=== PATIENT | female | born 1945 | race Caucasian/White ===

== ENCOUNTER 2020-12-16 13:21 | Observation (INO) ==
[~2020-12-16 13:21] MED LIST: SCOPOLAMINE 1 PATCH PATCH TOPICAL PRN
[2020-12-16] MEDS ORDERED: ONDANSETRON 4 MG/2 ML VIAL IV ONE (13:43)
[2020-12-16] MEDS ORDERED: 0.9 % SODIUM CHLORIDE 1,000 ML IV ONE (13:43)
[2020-12-16 14:33] LABS: Basophils # (Auto) 0.04 K/mcL (0.00-0.20); Basophils % (Auto) 0.5 % (0.0-2.0); Eosinophils # (Auto) 0.01 K/mcL (0.00-0.70); Eosinophils % (Auto) 0.1 % (0.0-7.0); Hematocrit 30.1 % (36.0-48.0); Hemoglobin 9.4 g/dL (12.0-15.0); Lymphocytes # (Auto) 2.29 K/mcL (1.50-4.80); Lymphocytes % (Auto) 28.9 % (15.0-49.0); Mean Cell Volume 98.7 fL (80.0-100.0); Mean Corpuscular HGB Conc 31.2 g/dL (31.0-36.0); Mean Platelet Volume 10.6 fL (7.4-10.4); Monocytes # (Auto) 1.92 K/mcL (0.10-0.90); Monocytes % (Auto) 24.2 % (1.0-12.0); Neutrophils % (Auto) 46.3 % (38.0-78.0); Platelet Count 156 K/mcL (140-440); RBC 3.05 M/mcL (4.00-5.20); Red Cell Distribution Width 28.7 % (11.5-14.5); WBC 7.9 K/mcL (4.5-11.0)
[2020-12-16 14:57] LABS: ALT/SGPT 6 U/L (<40); AST/SGOT 14 U/L (<32); Albumin 4.1 gm/dL (3.2-5.2); Albumin/Globulin Ratio 1.3 (1.0-2.3); Alkaline Phosphatase 66 U/L (39-117); Bilirubin,Total 0.2 mg/dL (0.1-1.0); Blood Urea Nitrogen 27 mg/dL (8-23); Carbon Dioxide 22 mmol/L (22-30); Chloride 102 mmol/L (96-108); Globulin 3.2 gm/dL (2.2-3.7); Glomerular Filtration Rate 55; Glucose 115 mg/dL (70-105)
[2020-12-16] MEDS ORDERED: ONDANSETRON 4 MG/2 ML VIAL IV PRN (15:17)
--- NOTE | 2020-12-16 15:27 | Emergency Department Note ---
Abdominal Pain HPI General Chief Complaint: Abdominal Pain Stated Complaint: abdominal pain Time Seen by Provider: 12/16/20 13:23 Mode of arrival: ambulatory Limitations: no limitations History of Present Illness HPI Narrative: Narrative: Patient is a 75-year-old female that comes into the emergency department today with concern of increasing pain to the right upper quadrant that started 2 weeks ago. Patient reports that yesterday the pain became very severe that she felt that she needed to come to the emergency department. She has been seen by her primary care provider, and PCP had ordered an outpatient ultrasound to be done on Friday, but patient felt that her pain was worsening so she decided to come in today. Patient reports feeling nauseous but has not had any vomiting. She has not had any fevers or chills. She reports that she started taking tramadol and has been occasionally constipated. Her last bowel movement was 2 days ago. She denies any melena or hematochezia. Patient denies any cough, chest pain, shortness of breath, or difficulty breathing. Related Data Home Medications Medication Instructions Recorded Confirmed aspirin [Ecotrin Low Strength] 81 mg PO QDAY 01/04/16 11/28/20 cephalexin 500 mg PO QHS 01/04/16 12/06/20 diphenhydramine HCl [Z-Sleep] 25 mg PO QHS 01/04/16 12/06/20 hydroxyurea 500 mg PO QHS 01/04/16 12/06/20 albuterol sulfate [Ventolin HFA] 2 puff INHALATION Q6H PRN 05/17/20 11/28/20 folic acid 1 mg PO QHS 05/17/20 12/06/20 paroxetine HCl 20 mg PO QHS 09/20/20 12/06/20 tramadol 100 mg PO TID PRN 09/20/20 12/06/20 ibuprofen 200 mg PO Q6H PRN 09/27/20 11/28/20 ruxolitinib [Jakafi] 10 mg PO BID 12/05/20 12/06/20 Allergies Allergy/AdvReac Type Severity Reaction Status Date / Time adhesive tape Allergy Intermediate Blister Verified 12/16/20 13:26 [place] Allergy Mild Mouth Verified 12/16/20 13:26 Blisters walnut Allergy Mild Mouth Verified 12/16/20 13:26 Blisters hydrocodone AdvReac Intermediate Nausea Verified 12/16/20 13:26 oxycodone [OXYCODONE] AdvReac Intermediate Hallucinati Verified 12/16/20 13:26 ons propoxyphene AdvReac Intermediate Hallucinati Verified 12/16/20 13:26 [From Fernando-N] ng codeine [CODEINE] AdvReac Mild Vomiting Verified 12/16/20 13:26 Review of Systems ROS ROS Narrative: Narrative: All systems ED: reviewed and negative except as stated. [facility] Narrative Patient History Narrative: Narrative: Medical/Surgical/Family History All Active Problems (Updated 12/16/20 @ 15:28 by MICHAEL Johnson) Cholelithiasis (Acute) Constipation (Acute) History of tobacco use (Chronic) Open leg wound (Chronic) Easy bruising (Chronic) Abnormal gait (Chronic) Urinary incontinence (Chronic) Dyspnea on exertion (Chronic) Edema (Chronic) Ankle fracture (Chronic) History of surgery (Chronic) Depression (Chronic) Degenerative joint disease (Chronic) Polycythemia vera (Chronic) Low back pain (Chronic) Chronic pain (Chronic) Radiculopathy, lumbar region (Chronic) Chronic foot ulcer (Chronic) Influenza (Chronic) Right middle lobe pneumonia (Chronic) Medical History (Updated 12/16/20 @ 15:28 by MICHAEL Johnson) Abnormal gait uses cane Ankle fracture Chronic foot ulcer Chronic pain Degenerative joint disease Depression Dyspnea on exertion Easy bruising Edema History of tobacco use Influenza Low back pain Open leg wound vascular stalled wounds both lower legs,II classifcation C4a Polycythemia vera Radiculopathy, lumbar region Right middle lobe pneumonia Urinary incontinence Surgical History (Updated 11/15/20 @ 13:19 by Heather Lara) History of appendectomy History of oophorectomy History of right oophorectomy History of skin graft History of splenectomy History of surgery TF LINDY #2 Bilat L5-S1 w/sed 12/01/201811/14 TF LINDY #1 [place] L5-S1 w/sed 11/10/2018 History of surgery multiple debridement of wound on foot Family History (Updated 11/15/20 @ 13:20 by Heather Lara) Father Skin cancer Mother Arthritis Social History Smoking Status: Former smoker Alcohol Intake Frequency: does not drink Substance Use: does not use Exam Narrative Narrative: Narrative: General Limitations: no limitations General appearance: Present alert and in no apparent distress Head Head: Present atraumatic, normocephalic and normal inspection Eye Eye: Present normal appearance and PERRL; Absent scleral icterus ENT ENT: Present normal exam, normal oropharynx and mucous membranes moist Neck Neck: Present normal inspection, full ROM and trachea midline; Absent lymphadenopathy and thyromegaly Chest Chest: Present symmetric chest wall rise Respiratory Respiratory: Present normal lung sounds bilaterally; Absent respiratory di stress, rales/crackles, wheezes, stridor, accessory muscle use and prolonged expiratory phase Cardiovascular Cardiovascular: Present regular rate and normal rhythm; Absent systolic murmur and diastolic murmur Ad[place]om[place] Abdominal: Present soft, tenderness (Right upper quadrant) and Natarajan's sign; Absent distention, ascites, mass and hernia Extremities Extremities: Present normal inspection, full ROM and normal capillary refill; Absent pedal edema, pretibial edema and calf tenderness Back Back: Present normal inspection and full ROM; Absent tenderness, CVA tenderness (R), CVA tenderness (L) and spinous process tenderness Neurological Neurological: Present alert and oriented X3 Psychiatric Psychiatric: Present normal affect and normal mood Skin Skin: Present warm (WNL) and dry Course Vital Signs Vital signs: Vital Signs Pulse Rate 75 12/16/20 15:30 Blood Pressure 149/71 12/16/20 15:30 Pulse Oximetry (%) 97 12/16/20 15:30 Temperature 98.2 F 12/16/20 16:00 Pulse Rate 86 12/16/20 16:00 Respiratory Rate 16 12/16/20 16:00 Blood Pressure 144/68 12/16/20 16:00 Pulse Oximetry (%) 97 12/16/20 16:00 [facility] Narrative Medical decision making narrative: Narrative: Patient has right upper quadrant tenderness with positive Natarajan sign. Proceeded with an ultrasound for further evaluation. The ultrasound does show some cholelithiasis with asymmetrical thickening of the wall of the gallbladder. No stone obstruction was seen. Common bile duct 4.5 cm as read to me by the biology specimen technician. The patient has a normal CBC besides some slight anemia which appears to be stable and at the patient's baseline. CMP is unremarkable. I was able to consult with Dr. Kaye who is on-call today for general surgery. Dr. Kaye would like the patient to be admitted for observation, and will plan on a laparoscopic cholecystectomy likely tomorrow. Dr. Kaye will plan on seeing the patient. Patient will be admitted to [facility]. Lab Data Result diagrams: 12/16/20 13:50 12/16/20 13:50 Labs: Lab Results 12/16/20 12/16/20 Range/Units 13:50 13:50 WBC 7.9 (4.5-11.0) K/mcL RBC 3.05 L (4.00-5.20) M/mcL Hgb 9.4 L (12.0-15.0) g/dL Hct 30.1 L (36.0-48.0) % MCV 98.7 (80.0-100.0) fL MCH 30.8 (26.0-34.0) pg MCHC 31.2 (31.0-36.0) g/dL RDW 28.7 H (11.5-14.5) % Plt Count 156 (140-440) K/mcL MPV 10.6 H (7.4-10.4) fL Neut % (Auto) 46.3 (38.0-78.0) % Lymph % (Auto) 28.9 (15.0-49.0) % [place] % (Auto) 24.2 H (1.0-12.0) % Eos % (Auto) 0.1 (0.0-7.0) % Baso % (Auto) 0.5 (0.0-2.0) % Lymph # (Auto) 2.29 (1.50-4.80) K/mcL [place] # (Auto) 1.92 H (0.10-0.90) K/mcL Eos # (Auto) 0.01 (0.00-0.70) K/mcL Baso # (Auto) 0.04 (0.00-0.20) K/mcL Absolute Neutrophils 3.66 (1.80-8.00) K/mcL Sodium 135 (133-145) mmol/L Potassium 4.1 (3.3-5.1) mmol/L Chloride 102 (96-108) mmol/L Carbon Dioxide 22 (22-30) mmol/L Anion Gap 11.0 (8.0-16.0) BUN 27 H (8-23) mg/dL Creatinine 1.0 (0.6-1.1) mg/dL GFR Calculation 55 Glucose 115 H (70-105) mg/dL Calcium 9.0 (8.6-10.4) mg/dL Total Bilirubin 0.2 (0.1-1.0) mg/dL AST 14 (<32) U/L ALT 6 (<40) U/L Alkaline Phosphatase 66 (39-117) U/L Total Protein 7.3 (5.9-8.4) gm/dL Albumin 4.1 (3.2-5.2) gm/dL Globulin 3.2 (2.2-3.7) gm/dL Albumin/Globulin Ratio 1.3 (1.0-2.3) Lipase 19 (7-60) U/L Discharge Plan Patient/Caregiver Discharge Instructions Pt seen by [facility] ADMINISTRATOR/PA only: Yes Clinical Impression: Cholelithiasis Qualifiers: Cholelithiasis location: gallbladder Cholecystitis presence: with cholecystitis Cholecystitis acuity: acute Biliary obstruction: without biliary obstruction Qualified Code(s): K80.00 - Calculus of gallbladder with acute cholecystitis without obstruction Constipation Qualifiers: Constipation type: drug induced constipation Qualified Code(s): K59.03 - Drug induced constipation Patient Disposition: Xfer As Outpt/Obs ([facility]) Condition: Fair Discharge Date/Time: 12/16/20 15:45
[2020-12-16] MEDS ORDERED: PIPERACILLIN SODIUM/TAZOBACTAM 3.375 GM in DEXTROSE 5% IN WATER 50 ML IV SCH (15:30)
[2020-12-16] MEDS: 0.9 % SODIUM CHLORIDE 1,000 ML IV SCH (17:07)
[2020-12-16] MEDS: PIPERACILLIN SODIUM/TAZOBACTAM 2.25 GM in DEXTROSE 5% IN WATER 50 ML IV SCH ×2 (17:14→20:32)
[2020-12-16] MEDS: HYDROmorphone 0.5 MG/0.5 ML SYRINGE IV PRN ×2 (17:14→20:29)
[2020-12-16] MEDS ORDERED: ALBUTEROL SULFATE 200 PUFF INHALER INH PRN (17:53)
[2020-12-16 18:21] LABS: Prothrombin Time 13.8 sec (11.9-14.5)
--- NOTE | 2020-12-16 18:27 | XRay Report ---
CLINICAL INFORMATION: Abdominal pain with history of constipation COMPARISON: None. FINDINGS: Moderate amount of stool is present within the right and rectosigmoid segment of the colon. Colon is slightly dilated. Small bowel and stomach are normal caliber. No free air, soft tissue mass or pathologic calcification. IMPRESSION: No acute disease. Moderate stool in the right and rectosigmoid colonic segments. Interpreted and Authenticated by: Mikel Gilmore 12/16/20
--- NOTE | 2020-12-16 18:32 | Ultrasound Report ---
CLINICAL INFORMATION: Right upper quadrant pain. Positive Natarajan sign. COMPARISON: None. FINDINGS: Multiple stones within the gallbladder. Gallbladder wall slightly thickened - 4 mm with focal tenderness over the gallbladder. Common bile duct is normal - 4 mm. The liver and pancreas are normal in size and echotexture. No free fluid IMPRESSION: Cholecystitis Interpreted and Authenticated by: Mikel Gilmore 12/16/20
--- NOTE | 2020-12-16 18:36 | General Surg History&Physical ---
HPI History of Present Illness Patient information: Note initiated : 12/16/20 at 6:20 pm Service Date, if different from initiated Date: [] Patient: Agatha Jay a 75 y/o F admitted on 12/16/20 for abdominal pain. Chief Complaint: [] History of present illness: Ms. Jay is a 75 year old F with acute cholecystitis with cholelithiasis. Patient has a 2-month history of right upper quadrant, epigastric, but back pain. She was seen by her primary care provider and scheduled for upper abdominal ultrasound which is to be done in 2 days. Wh en seen in the emergency room she was noted to have edematous gallbladder with multiple stones. Her ductal system is normal. Patient states that she has been unable to eat because of pain, early satiety, nausea and vomiting. She has at least a 20 pound weight loss over the past 2 months. Patient is evaluated and counseled for urgent laparoscopic cholecystectomy which will be performed in the morning. Constitutional Constitutional: Present anorexia, fatigue, lethargy, malaise, weakness and weight loss (20 pound weight loss) EENT Eyes: Absent loss of vision Ears: Absent decreased hearing and tinnitus Nose, mouth and throat: Absent dizziness and dysphagia Cardiovascular Cardiovascular: Present leg ulcers, lightheadedness and palpatations; Absent chest pain, chest pain with activity and dyspnea on exertion Respiratory Respiratory: Absent cough, dyspnea and wheezing Gastrointestinal Gastrointestinal: Present abdominal pain, belching, bloating, constipation, dyspepsia, heartburn, nausea and vomiting Genitourinary Genitourinary: Absent nocturia, urinary frequency, urinary hesitancy and urinary urgency Musculoskeletal Musculoskeletal: Present arthralgias, muscle weakness and myalgias Integumentary Integumentary: Present new lesions (Bilateral ankle ulcerations) and skin ulcer Neurological Neurological: Present abnormal gait and sensory deficit; Absent dizziness and f ocal weakness Psychiatric Psychiatric: Present anxiety; Absent depression Endocrine Endocrine: Present fatigue; Absent palpitations Hematologic/Lymphatic Hematologic/Lymphatic: Absent easy bleeding, easy bruising and lymphadenopathy Allergic/Immunologic Allergic/Immunologic: Absent tongue swelling, throat swelling, uticaria and wheezing PFSH PFSH All Active Problems (Updated 12/16/20 @ 18:34 by Bel Kaye MD) Moderate dehydration (Acute) Cholelithiasis and cholecystitis without obstruction (Acute) Cholelithiasis (Acute) Constipation (Acute) History of tobacco use (Chronic) Open leg wound (Chronic) Easy bruising (Chronic) Abnormal gait (Chronic) Urinary incontinence (Chronic) Dyspnea on exertion (Chronic) Edema (Chronic) Ankle fracture (Chronic) History of surgery (Chronic) Depression (Chronic) Degenerative joint disease (Chronic) Polycythemia vera (Chronic) Low back pain (Chronic) Chronic pain (Chronic) Radiculopathy, lumbar region (Chronic) Chronic foot ulcer (Chronic) Influenza (Chronic) Right middle lobe pneumonia (Chronic) Medical History (Updated 12/16/20 @ 18:34 by Bel Kaye MD) Abnormal gait uses cane Ankle fracture Chronic foot ulcer Chronic pain Degenerative joint disease Depression Dyspnea on exertion Easy bruising Edema History of tobacco use Influenza Low back pain Open leg wound vascular stalled wounds both lower legs,II classifcation C4a Polycythemia vera Radiculopathy, lumbar region Right middle lobe pneumonia Urinary incontinence Surgical History (Updated 11/15/20 @ 13:19 by Heather Lara) History of appendectomy History of oophorectomy History of right oophorectomy History of skin graft History of splenectomy History of surgery TF LINDY #2 Bilat L5-S1 w/sed 12/01/201811/14 TF LINDY #1 [place] L5-S1 w/sed 11/10/2018 History of surgery multiple debridement of wound on foot Family History (Updated 11/15/20 @ 13:20 by Heather Lara) Father Skin cancer Mother Arthritis Social History (Updated 11/15/20 @ 13:21 by Heather Lara) marital status: education level: high school 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 smoking status: Former smoker alcohol intake frequency: does not drink substance use type: does not use MEDS/ALLERGIES Home Medications and Allergies Home Medications Medication Instructions Recorded Confirmed Type aspirin [Ecotrin Low Strength] 81 mg PO QDAY 01/04/16 12/16/20 History cephalexin 500 mg PO QHS 01/04/16 12/16/20 History diphenhydramine HCl [Z-Sleep] 25 mg PO QHS 01/04/16 12/16/20 History hydroxyurea 500 mg PO QHS 01/04/16 12/16/20 History albuterol sulfate [Ventolin HFA] 2 puff INHALATION Q6H PRN 05/17/20 12/16/20 History folic acid 1 mg PO QHS 05/17/20 12/16/20 History paroxetine HCl 40 mg PO QHS 09/20/20 12/16/20 History tramadol 50 mg PO BID 09/20/20 12/16/20 History ibuprofen 200 mg PO Q6H PRN 09/27/20 12/16/20 History ruxolitinib [Jakafi] 10 mg PO BID 12/05/20 12/16/20 History Allergies Allergy/AdvReac Type Severity Reaction Status Date / Time adhesive tape Allergy Intermediate Blister Verified 12/16/20 13:26 [place] Allergy Mild Mouth Verified 12/16/20 13:26 Blisters [place] Allergy Mild Mouth Verified 12/16/20 13:26 Blisters hydrocodone AdvReac Intermediate Nausea Verified 12/16/20 13:26 oxycodone [OXYCODONE] AdvReac Intermediate Hallucinati Verified 12/16/20 13:26 ons propoxyphene AdvReac Intermediate Hallucinati Verified 12/16/20 13:26 [From Darrylt-N] ng codeine [CODEINE] AdvReac Mild Vomiting Verified 12/16/20 13:26 Physical Examination Vital Signs Vital signs: Temp Pulse Resp BP Pulse Ox 98.2 F 86 16 144/68 97 12/16/20 16:00 12/16/20 16:00 12/16/20 16:00 12/16/20 16:00 12/16/20 16:00 General physical appearance General physical exam: moderate distress, moderate pain, cachectic and chronically ill Eyes Eye exam: PERRL and normal ocular movement ENT ENT exam: normal mucosa Head Head exam IM: Present atraumatic, normal inspection and normocephalic Neck Neck exam: no masses, no bruits, trachea midline, no lymphadenopathy and no venous distension Cardiovascular Cardiovascular exam IM: Present normal rate and rhythm, RRR, +S1 and +S2; Absent gallop, JVD and systolic murmur Respiratory Respiratory exam: normal expansion, normal respiratory effort and clear to auscultation Abdomen Abdomen: Present tender (Right upper quadrant and epigastric tenderness with guarding) and guarding Integumentary Integumentary: Present other (Chronic healing ulcerations of both ankles) Neurologic Neurologic: Present normal coordination and normal sensation Musculoskeletal Musculoskeletal: Present normal gait and normal posture Psychiatric Psychiatric: Present oriented to time, oriented to person, oriented to place, speech is normal and memory intact Results Labs Result diagrams: 12/16/20 13:50 12/16/20 13:50 Labs: Abnormal lab results 12/16/20 12/16/20 Range/Units 13:50 13:50 RBC 3.05 L (4.00-5.20) M/mcL Hgb 9.4 L (12.0-15.0) g/dL Hct 30.1 L (36.0-48.0) % RDW 28.7 H (11.5-14.5) % MPV 10.6 H (7.4-10.4) fL [place] % (Auto) 24.2 H (1.0-12.0) % [place] # (Auto) 1.92 H (0.10-0.90) K/mcL BUN 27 H (8-23) mg/dL Glucose 115 H (70-105) mg/dL Diabetes panel 12/16/20 Range/Units 13:50 Sodium 135 (133-145) mmol/L Potassium 4.1 (3.3-5.1) mmol/L Chloride 102 (96-108) mmol/L Carbon Dioxide 22 (22-30) mmol/L BUN 27 H (8-23) mg/dL Creatinine 1.0 (0.6-1.1) mg/dL Glucose 115 H (70-105) mg/dL Calcium 9.0 (8.6-10.4) mg/dL AST 14 (<32) U/L ALT 6 (<40) U/L Alkaline Phosphatase 66 (39-117) U/L Total Protein 7.3 (5.9-8.4) gm/dL Albumin 4.1 (3.2-5.2) gm/dL Calcium panel 12/16/20 Range/Units 13:50 Calcium 9.0 (8.6-10.4) mg/dL Albumin 4.1 (3.2-5.2) gm/dL Pituitary panel 12/16/20 Range/Units 13:50 Sodium 135 (133-145) mmol/L Potassium 4.1 (3.3-5.1) mmol/L Chloride 102 (96-108) mmol/L Carbon Dioxide 22 (22-30) mmol/L BUN 27 H (8-23) mg/dL Creatinine 1.0 (0.6-1.1) mg/dL Glucose 115 H (70-105) mg/dL Calcium 9.0 (8.6-10.4) mg/dL Adrenal panel 12/16/20 Range/Units 13:50 Sodium 135 (133-145) mmol/L Potassium 4.1 (3.3-5.1) mmol/L Chloride 102 (96-108) mmol/L Carbon Dioxide 22 (22-30) mmol/L BUN 27 H (8-23) mg/dL Creatinine 1.0 (0.6-1.1) mg/dL Glucose 115 H (70-105) mg/dL Calcium 9.0 (8.6-10.4) mg/dL Total Bilirubin 0.2 (0.1-1.0) mg/dL AST 14 (<32) U/L ALT 6 (<40) U/L Alkaline Phosphatase 66 (39-117) U/L Total Protein 7.3 (5.9-8.4) gm/dL Albumin 4.1 (3.2-5.2) gm/dL All other labs normal. A/P Assessment and plan (1) Cholelithiasis and cholecystitis without obstruction: Status: Acute Qualifiers: Cholelithiasis location: gallbladder Cholecystitis acuity: acute and chronic Qualified Code(s): K80.12 - Calculus of gallbladder with acute and chronic cholecystitis without obstruction (2) Moderate dehydration: Status: Acute (3) Open leg wound: Status: Chronic Comment: vascular stalled wounds both lower legs,II classifcation C4a Qualifiers: Encounter type: initial encounter Laterality: bilateral Qualified Code(s): S81.801A - Unspecified open wound, right lower leg, initial encounter; S81.802A - Unspecified open wound, left lower leg, initial encounter (4) Polycythemia vera: Status: Chronic Narrative A/P Narrative: Continue hydration tonight Zosyn 3.375 g IV every 6 hours Schedule for laparoscopic cholecystectomy in the morning N.p.o. after midnight Time Spent With Patient Time: Total time spent is greater than 50% in coordination of care (as documented) at patient's floor/unit and/or counseling patient:
[2020-12-16] MEDS: traMADol 50 MG TABLET PO SCH (20:32)
[2020-12-16] MEDS: 0.9 % SODIUM CHLORIDE 10 ML SYRINGE IV SCH (20:34)
[2020-12-16] MEDS ORDERED: diphenhydrAMINE 25 MG CAPSULE PO SCH (21:00)
[2020-12-16] MEDS ORDERED: HYDROXYUREA 500 MG CAPSULE PO SCH ×3 (21:00)
[2020-12-16] MEDS ORDERED: PARoxetine 20 MG TABLET PO SCH (21:00)
[2020-12-16] MEDS ORDERED: RUXOLITINIB 5 MG PO SCH (21:00)
[2020-12-17] MEDS ORDERED: RUXOLITINIB 5 MG PO SCH
[2020-12-17] MEDS: PIPERACILLIN SODIUM/TAZOBACTAM 2.25 GM in DEXTROSE 5% IN WATER 50 ML IV SCH ×5 (00:18→23:45)
[2020-12-17] MEDS: HYDROmorphone 0.5 MG/0.5 ML SYRINGE IV PRN ×4 (03:09→18:55)
[2020-12-17] MEDS: 0.9 % SODIUM CHLORIDE 1,000 ML IV SCH ×4 (03:53→21:16)
[2020-12-17] MEDS: 0.9 % SODIUM CHLORIDE 10 ML SYRINGE IV SCH ×3 (04:07→20:23)
[2020-12-17 06:21] LABS: Basophils # (Auto) 0.07 K/mcL (0.00-0.20); Basophils % (Auto) 0.9 % (0.0-2.0); Eosinophils # (Auto) 0.01 K/mcL (0.00-0.70); Eosinophils % (Auto) 0.1 % (0.0-7.0); Hematocrit 30.5 % (36.0-48.0); Hemoglobin 9.5 g/dL (12.0-15.0); Lymphocytes # (Auto) 2.51 K/mcL (1.50-4.80); Lymphocytes % (Auto) 30.7 % (15.0-49.0); Mean Cell Volume 100.3 fL (80.0-100.0); Mean Corpuscular HGB Conc 31.1 g/dL (31.0-36.0); Mean Platelet Volume 10.9 fL (7.4-10.4); Monocytes # (Auto) 2.33 K/mcL (0.10-0.90); Monocytes % (Auto) 28.5 % (1.0-12.0); Neutrophils % (Auto) 39.8 % (38.0-78.0); Platelet Count 150 K/mcL (140-440); RBC 3.04 M/mcL (4.00-5.20); Red Cell Distribution Width 28.9 % (11.5-14.5); WBC 8.2 K/mcL (4.5-11.0)
[2020-12-17 06:31] LABS: INR 1.1 (0.9-1.1); Prothrombin Time 14.7 sec (11.9-14.5)
[2020-12-17 06:47] LABS: ALT/SGPT 6 U/L (<40); AST/SGOT 13 U/L (<32); Albumin 3.7 gm/dL (3.2-5.2); Albumin/Globulin Ratio 1.4 (1.0-2.3); Alkaline Phosphatase 58 U/L (39-117); Bilirubin,Direct < 0.2 mg/dL (<0.3); Bilirubin,Total 0.2 mg/dL (0.1-1.0); Blood Urea Nitrogen 14 mg/dL (8-23); Calcium 8.2 mg/dL (8.6-10.4); Carbon Dioxide 23 mmol/L (22-30); Chloride 110 mmol/L (96-108); Globulin 2.7 gm/dL (2.2-3.7); Glomerular Filtration Rate 72; Glucose 85 mg/dL (70-105); Lactate Dehydrogenase 376 U/L (135-225); Phosphorous 3.1 mg/dL (2.5-4.5); Triglycerides 223 mg/dL (<150); Uric Acid 2.8 mg/dL (2.5-8.0)
[2020-12-17 07:00] LABS: Appearance,Urine CLEAR (Clear); Bacteria,Urine 0 /hpf (0); Bilirubin,Urine Negative (Negative); Color,Urine STRAW; Culture Indicated,Urine No; Glucose,Urine (UA) Negative (Negative); Ketones,Urine Negative (Negative); Leukocyte Esterase,Urine Negative /ug (Negative); Nitrate,Urine Negative (Negative); Protein,Urine 30 mg/dL (Negative); Specific Gravity,Urine 1.017 (1.000-1.035); Urine Blood Negative (Negative); Urine RBC 1 /hpf (0-3); Urine Squamous Epithelial Cell 20 /hpf (0-4); Urine WBC 2 /hpf (0-4); Urobilinogen,Urine Negative
[2020-12-17] MEDS ORDERED: LIDOCAINE HCL/PF 100 MG/5 ML SYRINGE IV ONE (08:00)
[2020-12-17] MEDS ORDERED: DEXAMETHASONE 10 MG/ML VIAL ONE (08:00)
[2020-12-17] MEDS ORDERED: ONDANSETRON 4 MG/2 ML VIAL ONE (08:00)
[2020-12-17] MEDS ORDERED: IPRATROPIUM/ALBUTEROL 3 ML AMPUL.NEB NEB PRN ×2 (08:00→08:34)
[2020-12-17] MEDS ORDERED: PROPOFOL 200 MG/20 ML VIAL IV ONE (08:00)
[2020-12-17] MEDS ORDERED: ePHEDrine 50 MG/ML AMPUL IV ONE (08:00)
[2020-12-17] MEDS ORDERED: PHENYLEPHRINE 10 MG/ML VIAL ONE (08:00)
[2020-12-17] MEDS ORDERED: fentaNYL 100 MCG/2 ML VIAL IV ONE (08:00)
[2020-12-17] MEDS ORDERED: MIDAZOLAM 2 MG/2 ML VIAL ONE (08:00)
[2020-12-17] MEDS ORDERED: GLYCOPYRROLATE 0.2 MG/ML VIAL IV ONE (08:00)
[2020-12-17] MEDS ORDERED: ROCURONIUM 10 MG/ML ML IV ONE (08:00)
[2020-12-17] MEDS ORDERED: MAGNESIUM SULFATE 2 GM/50 ML BAG IV ONE (08:00)
[2020-12-17] MEDS ORDERED: SUGAMMADEX SODIUM 200 MG/2 ML VIAL IV ONE (08:00)
[2020-12-17] MEDS ORDERED: KETAMINE 100 MG/ML ML ONE (08:00)
[2020-12-17] MEDS ORDERED: METHOCARBAMOL 1,000 MG/10 ML VIAL IV PRN (08:34)
[2020-12-17] MEDS ORDERED: LACTATED RINGERS 250 ML IV PRN (08:34)
[2020-12-17] MEDS ORDERED: LABETALOL 5 MG/ML ML IV PRN (08:34)
[2020-12-17] MEDS ORDERED: PROMETHAZINE 25 MG/ML VIAL IV PRN (08:34)
[2020-12-17] MEDS ORDERED: NALOXONE HCL 0.4 MG/ML VIAL IV PRN (08:34)
[2020-12-17] MEDS ORDERED: FLUMAZENIL 0.1 MG/ML ML IV PRN (08:34)
[2020-12-17] MEDS ORDERED: ACETAMINOPHEN 750 MG/75 ML BAG IV ONE (08:34)
[2020-12-17] MEDS ORDERED: fentaNYL 100 MCG/2 ML VIAL IV PRN (08:34)
[2020-12-17] MEDS ORDERED: METOPROLOL TARTRATE 5 MG/5 ML VIAL IV PRN (08:34)
[2020-12-17] MEDS ORDERED: BENZOCAINE/MENTHOL 1 LOZENGE PO PRN (08:34)
[2020-12-17] MEDS ORDERED: LACTATED RINGERS 1,000 ML IV SCH (08:45)
[2020-12-17] MEDS ORDERED: HYDROXYUREA 500 MG CAPSULE PO SCH ×3 (09:00→21:00)
--- NOTE | 2020-12-17 09:40 | Brief Operative Note ---
Brief Operative Note Date of procedure: 12/17/20 Pre-op diagnosis: cholelithiasis with cholecystitis Post-op diagnosis: other (cholelithiasis with cholecystitis) Procedure: lapparoscopic cholecystectomy Grafts/Implants: No Anesthesia: GETA Findings: dilated edematous gallbladder with stones Complications: none Surgeon: Bel Kaye Estimated blood loss (cc): 30 Specimens Removed/Pathology: other (gallbladder) Condition: stable Disposition: PACU
[2020-12-17] MEDS: traMADol 50 MG TABLET PO SCH ×2 (10:13→20:23)
[2020-12-17] MEDS ORDERED: ALBUTEROL SULFATE 200 PUFF INHALER INH PRN (10:30)
[2020-12-17] MEDS ORDERED: ONDANSETRON 4 MG/2 ML VIAL IV PRN (10:30)
[2020-12-17] MEDS: HYDROXYUREA 500 MG CAPSULE PO SCH (11:36)
[2020-12-17] MEDS: RUXOLITINIB 5 MG PO SCH ×2 (11:36→20:22)
[2020-12-17] MEDS ORDERED: diphenhydrAMINE 25 MG CAPSULE PO SCH (21:00)
[2020-12-17] MEDS ORDERED: PARoxetine 20 MG TABLET PO SCH (21:00)
[2020-12-18] MEDS: HYDROmorphone 0.5 MG/0.5 ML SYRINGE IV PRN ×5 (01:15→11:41)
[2020-12-18] MEDS: 0.9 % SODIUM CHLORIDE 10 ML SYRINGE IV SCH ×2 (04:25→14:14)
[2020-12-18] MEDS: PIPERACILLIN SODIUM/TAZOBACTAM 2.25 GM in DEXTROSE 5% IN WATER 50 ML IV SCH (05:24)
[2020-12-18] MEDS: 0.9 % SODIUM CHLORIDE 1,000 ML IV SCH ×2 (05:35→08:39)
[2020-12-18 05:50] LABS: Basophils # (Auto) 0.02 K/mcL (0.00-0.20); Basophils % (Auto) 0.2 % (0.0-2.0); Eosinophils # (Auto) 0.01 K/mcL (0.00-0.70); Eosinophils % (Auto) 0.1 % (0.0-7.0); Hemoglobin 8.2 g/dL (12.0-15.0); Lymphocytes # (Auto) 1.92 K/mcL (1.50-4.80); Mean Cell Volume 98.1 fL (80.0-100.0); Mean Corpuscular HGB Conc 31.5 g/dL (31.0-36.0); Mean Platelet Volume 10.5 fL (7.4-10.4); Monocytes # (Auto) 2.79 K/mcL (0.10-0.90); Monocytes % (Auto) 33.4 % (1.0-12.0); Neutrophils % (Auto) 43.3 % (38.0-78.0); Platelet Count 119 K/mcL (140-440); RBC 2.65 M/mcL (4.00-5.20); Red Cell Distribution Width 28.9 % (11.5-14.5); WBC 8.4 K/mcL (4.5-11.0)
[2020-12-18 06:03] LABS: ALT/SGPT 72 U/L (<40); AST/SGOT 77 U/L (<32); Albumin 3.5 gm/dL (3.2-5.2); Albumin/Globulin Ratio 1.4 (1.0-2.3); Alkaline Phosphatase 183 U/L (39-117); Bilirubin,Direct < 0.2 mg/dL (<0.3); Bilirubin,Total 0.2 mg/dL (0.1-1.0); Blood Urea Nitrogen 9 mg/dL (8-23); Calcium 7.7 mg/dL (8.6-10.4); Carbon Dioxide 22 mmol/L (22-30); Chloride 108 mmol/L (96-108); Globulin 2.5 gm/dL (2.2-3.7); Glomerular Filtration Rate 85; Glucose 81 mg/dL (70-105); Lactate Dehydrogenase 396 U/L (135-225); Triglycerides 136 mg/dL (<150); Uric Acid 2.2 mg/dL (2.5-8.0)
[2020-12-18] MEDS: HYDROXYUREA 500 MG CAPSULE PO SCH (07:51)
[2020-12-18] MEDS: RUXOLITINIB 5 MG PO SCH (07:51)
[2020-12-18] MEDS: traMADol 50 MG TABLET PO SCH (07:51)
[2020-12-18] MEDS ORDERED: FLU VACC QS2020-21(6MOS UP)/PF 60 MCG/0.5 ML SYRINGE IM ONE ×2 (10:00→14:45)
[2020-12-18] MEDS ORDERED: PIPERACILLIN SODIUM/TAZOBACTAM 3.375 GM in DEXTROSE 5% IN WATER 50 ML IV SCH (12:00)
--- NOTE | 2020-12-18 13:24 | Discharge Summary ---
Discharge Provider Provider Patient information: Note initiated : 12/18/20 at 1:19 pm Service Date, if different from initiated Date: [] Patient: Agatha Jay 75 y/o F admitted on 12/16/20 for abdominal pain. Chief Complaint: [] Date of admission: 12/16/20 15:44 Discharge date: 12/18/20 Primary care physician: Julio César Roberts Admitting clinician: Bel Kaye Attending physician on admission: Bel Kaye Consults: 12/16/20 Consult to Physician [CONS] Stat Comment: Consulting Provider: Bel Kaye Reason For Exam: Physician to Consult Attending physician on discharge: Bel Kaye Discharging clinician: Bel Kaye COURSE Hospital Course Hospital course: 75-year-old female who was admitted via the emergency room with a 2-month history of right upper quadrant and epigastric pain radiating through to her back. She also had nausea and vomiting. Evaluation revealed multiple gallstones and dilated gallbladder. She underwent laparoscopic cholecystectomy on yesterday and has done very well. She is tolerating diet without nausea vomiting. Patient is stable for discharge Discharge diagnosis: Cholelithiasis with cholecystitis Secondary discharge diagnosis: Dehydration Weight loss due to nausea and vomiting Reason for admission: Cholecystitis with cholelithiasis Procedures: Laparoscopic cholecystectomy Pertinent studies/significant findings: None Complications: None Time Spent with Patient Time attestation: Total time spent providing and/or coordinating discharge services: Physical Examination Vital Signs Vital signs: Temp Pulse Resp BP Pulse Ox 98.2 F 81 20 113/59 91 12/18/20 11:48 12/18/20 11:48 12/18/20 11:48 12/18/20 11:48 12/18/20 11:48 General physical appearance General physical exam: moderate distress, moderate pain, cachectic and chronically ill Eyes Eye exam: PERRL and normal ocular movement ENT ENT exam: normal mucosa Neck Neck exam: no masses, no bruits, trachea midline, no lymphadenopathy and no venous distension Cardiovascular Cardiovascular exam IM: Present normal rate and rhythm, RRR, +S1 and +S2; Absent gallop, JVD and systolic murmur Respiratory Respiratory exam: normal expansion, normal respiratory effort and clear to auscultation Abdomen Abdomen: Present tender (Right upper quadrant and epigastric tenderness with guarding) and guarding Integumentary Integumentary: Present other (Chronic healing ulcerations of both ankles) Neurologic Neurologic: Present normal coordination and normal sensation Musculoskeletal Musculoskeletal: Present normal gait and normal posture Psychiatric Psychiatric: Present oriented to time, oriented to person, oriented to place, speech is normal and memory intact Discharge Plan Patient/Caregiver Discharge Instructions Activity: increase activity as tolerated Diet: Regular Diet and Low Fat Prescriptions: New hydromorphone 4 mg Tablet 2 mg PO Q6 Qty: 20 RF: 0 hydromorphone 2 mg tablet 2 mg PO Q6H Qty: 20 RF: 0 Continued hydroxyurea 500 MG capsule 500 mg PO QHS RF: 0 aspirin [Ecotrin Low Strength] 81 MG tablet,delayed release (DR/EC) 81 mg PO QDAY RF: 0 cephalexin 500 MG capsule 500 mg PO QHS RF: 0 diphenhydramine HCl [Z-Sleep] 25 MG capsule 25 mg PO QHS RF: 0 folic acid 1 mg Tablet 1 mg PO QHS RF: 0 albuterol sulfate [Ventolin HFA] 90 mcg/actuation Hfa Aerosol Inhaler 2 puff INHALATION Q6H PRN (Reason: Shortness Of Breath) RF: 0 paroxetine HCl 20 mg Tablet 40 mg PO QHS RF: 0 ibuprofen 200 mg Tablet 200 mg PO Q6H PRN (Reason: Pain) RF: 0 Jakafi 5 mg Tablet 10 mg PO BID RF: 0 hydroxyurea 500 mg Capsule 1,000 mg PO HS RF: 0 Discontinued tramadol 50 mg Tablet 50 mg PO BID RF: 0 Follow Up Plan Follow up with: Julio César Roberts DO [Primary Care Provider] - Bel Kaye MD [Physician] - (Follow-up appointment in the office in 2 weeks) Patient Disposition: Home, Self-Care Prognosis: Good Rehab Potential: Good I certify that the patient requires SNF services: No Overall status at discharge: patient is progressing back to baseline Discharge Orders: Discharge Order (Routine); Ordered 12/18/20 Ordered By: Bel Kaye Pending Pending Pending: Resuscitation Status Full Code Diet Regular Diet Start FriDec 18 0800 Diphenhydramine HCl (Diphenhydramine 25 Mg Capsule) 25 mg PO QHS SYED Last Admin: 12/17/20 20:23 Dose: 25 mg [facility] Hydromorphone HCl (Hydromorphone 0.5 Mg/0.5 Ml Syringe) 0.5 mg IV Q2HP PRN; Protocol PRN Reason: Per Pain Protocol Last Admin: 12/18/20 11:41 Dose: 0.5 mg Documented by: Admin: 12/18/20 08:49 Dose: 0.5 mg Documented by: Admin: 12/18/20 05:22 Dose: 0.5 mg Documented by: Admin: 12/18/20 03:19 Dose: 0.5 mg Documented by: Admin: 12/18/20 01:15 Dose: 0.5 mg Documented by: Admin: 12/17/20 18:55 Dose: 0.5 mg Documented by: Admin: 12/17/20 14:13 Dose: 0.5 mg Documented by: Admin: 12/17/20 11:41 Dose: 0.5 mg Documented by: LUCY Hydroxyurea (Hydroxyurea 500 Mg Capsule) 1,000 mg PO [facility] Last Admin: 12/17/20 20:22 Dose: 1,000 mg Documented by: NOEMI Hydroxyurea (Hydroxyurea 500 Mg Capsule) 500 mg PO DAILY [facility] Last Admin: 12/18/20 07:51 Dose: 500 mg Documented by: Admin: 12/17/20 11:36 Dose: 500 mg Documented by: LUCY Sodium Chloride (Sodium Chloride 0.9%) 1,000 mls @ 100 mls/hr IV .Q10H [facility] Last Admin: 12/18/20 08:39 Dose: 100 mls/hr Documented by: Infusion: 12/18/20 07:52 Dose: 0 mls/hr Documented by: Admin: 12/18/20 05:35 Dose: Not Given Documented by: Admin: 12/17/20 21:16 Dose: 100 mls/hr Documented by: Infusion: 12/17/20 21:16 Dose: 100 mls/hr Documented by: Admin: 12/17/20 11:37 Dose: 100 mls/hr Documented by: LUCY Piperacillin Sod/Tazobactam (Sod 3.375 gm/ Dextrose) 50 mls @ 100 mls/hr IV Q6H [facility] Last Admin: 12/18/20 11:41 Dose: 100 mls/hr Documented by: LUCY Paroxetine HCl (Paroxetine 20 Mg Tablet) 40 mg PO QHS [facility] Last Admin: 12/17/20 20:23 Dose: 40 mg Documented by: NOEMI Ruxolitinib [Jakafi] (5 Mg Tablet) 1 dose PO BID [facility] Last Admin: 12/18/20 07:51 Dose: 1 dose Documented by: Admin: 12/17/20 20:22 Dose: 1 dose Documented by: Admin: 12/17/20 11:36 Dose: 1 dose Documented by: LUCY Sodium Chloride (0.9 % Sodium Chloride 10 Ml Syringe) 10 ml IV Q8 [facility] Last Admin: 12/18/20 04:25 Dose: Not Given Documented by: Admin: 12/17/20 20:23 Dose: Not Given Documented by: Admin: 12/17/20 13:50 Dose: Not Given Documented by: LUCY Tramadol HCl (Tramadol 50 Mg Tablet) 50 mg PO BID [facility]; Protocol Last Admin: 12/18/20 07:51 Dose: 50 mg Documented by: Admin: 12/17/20 20:23 Dose: 50 mg Documented by: NOEMI Shift Summary 12/18/20 02:48 Shift Summary by Elizabeth Lora Addendum entered by Elizabeth Lora RGalilea 12/18/20 03:30: pt on 1 L O2 via NC to keep sats above 90%. Pt only sats below 90% when asleep. Original Note: pt is A&Ox4 and able to make needs known. up with 1 assist, 4 prong cane moving with slow purposeful movements. Pt ambulated 150 feet in [place] last night, and urinating approx 100 ml Q1 hour, wears own pull ups for urgency/frequency/incontinence. patient is experiencing pain r/t trapped air from surgery yesterday. Offered walks, warm pack and PRN Dilaudid Q2H. 4 lap sites to abdomen with film dressing in place- small sanguinous drainage noted to each site. Bilateral lower extremities CDI, covered prior to pts hospital stay- reportedly these wounds are managed by Dr. Nguyen office and pt has an appointment today to have her dressings changed- per Dr. Kaye these dressings are to remain covered. 20 guage to the LFA running NS at 100 ml/hr. Pt tolerating full liquid diet well, advanced to regular diet this morning at 0800. will update at bedside. Initialized on 12/18/20 02:48 - END OF NOTE
--- NOTE | 2020-12-18 15:37 | Operative Note ---
DATE OF OPERATION: 12/17/2020 PREOPERATIVE DIAGNOSES: Cholelithiasis with cholecystitis. POSTOPERATIVE DIAGNOSES: Cholelithiasis with cholecystitis. PROCEDURE: Laparoscopic cholecystectomy. SURGEON: Bel Kaye M.D. FINDINGS: Edematous dilated gallbladder with stones. DESCRIPTION OF PROCEDURE: Under general anesthesia, the patient's abdomen was prepped and draped in a sterile field. Timeout procedure was carried out as per protocol. Supraumbilical midline incision was made in the area of a previous laparotomy. The incision was extended down to the subcutaneous tissue and through the fascia. Using blunt dissection, the fascia was , and a small amount of omentum was noted to be adherent to the abdominal wall. Using blunt dissection, the omentum was removed and the free peritoneal cavity was entered. A Elizabeth blunt port was placed and secured. The abdomen was insufflated. The peritoneal cavity was free of adhesions in the right upper quadrant. Under videoscopic guidance, a 12 mm port and two 5 mm ports were placed in the right subcostal region. The gallbladder was dilated and edematous. It was grasped and positioned. Cystic duct and cystic artery were fused. This bundle was followed back to the infundibulum, and using blunt dissection the tube was . The cystic artery was followed onto the wall of the gallbladder, clipped with five clips and divided. The cystic duct was thickened and slightly edematous. It was felt that it would not accommodate vanna well, so it was transected at its junction with the gallbladder using Endo ALF stapler. Using blunt dissection and electrocautery, the gallbladder was from the infrahepatic bed without difficulty. Because of the edema, there was a small amount of oozing from the bed. The gallbladder was placed in an Endopouch and retrieved. Bleeding in the bed was mostly controlled with two large sheets of Surgicel gauze. More irrigation was carried out. CO2 was allowed to escape from the abdomen and the ports were removed. The fascia in the supraumbilical midline and in the right subcostal midline were closed with interrupted 0 Vicryl. Skin incisions were closed with vanna. The patient tolerated the procedure well. Tegaderm dressings were placed. She was awakened, transferred to a bed, and taken to the postanesthetic care unit in satisfactory condition. LCS:susi Job ID: [id number] Doc ID: [id number] Bel Kaye M.D.
--- NOTE | 2020-12-19 11:08 | Surgical Pathology Report ---
Histology Microscopic Diagnosis Specimen A- GALLBLADDER, CHOLECYSTECTOMY: --- CHRONIC CHOLECYSTITIS WITH CHOLELITHIASIS. Procedural Impression Cholecystitis, cholelithiasis. Gross Description Received in formalin labeled gallbladder, is a 6.8 x 3.5 x 0.9 cm purple-joiner gallbladder specimen. The majority of the serosa is smooth and glistening with approximately 30% rough and brown-joiner. Within the roughened area there is a 0.4 cm in greatest dimension opening. Four metal clamps are present on the cystic duct. The cystic duct is closed with a 1.3 cm staple line. The mucosa is velvety pink-joiner with no masses or lesions identified and the wall is up to 0.2 cm thick. Within the gallbladder specimen and specimen container there are multiple black stones found ranging in size from less than 0.1 up to 0.5 cm in greatest dimension. Check Writing Machine Operator portions submitted in one cassette. (KGW:adj) Electronically Signed Shasta Disla MD, FCAP Electronically Signed 12/19/2020 11:07
== END 2020-12-18 15:00 | disposition home or self-care (01) ==
LOC: ED 13:21 → MEDSUR 13:21
PROVIDERS: ADMIT Family Medicine Adult Medicine; ATTEND Family Medicine Adult Medicine

== ENCOUNTER 2021-10-24 06:13 | Inpatient (IN) ==
[2021-10-24] MEDS ORDERED: LIDOCAINE PATCH TOPICAL ONE (06:17)
[2021-10-24] MEDS ORDERED: ACETAMINOPHEN 500 MG TABLET PO ONE (06:17)
--- NOTE | 2021-10-24 06:27 | Emergency Department Note ---
Back Pain HPI General Chief Complaint: Back Pain/Injury Stated Complaint: back pain Time Seen by Provider: 10/24/21 06:17 Source: patient Limitations: no limitations History of Present Illness HPI Narrative: Patient is a 76-year complaining of low back pain. History is provided by the patient and review of her medical records. The patient says she has been having back pain for several weeks. She was seen by her primary care provider who ordered an outpatient MRI which was performed at [facility] the . This revealed an acute T12 compression fracture without spinal cord impingement. She followed up with pain management and on October 15 Dr. Ross performed a vertebroplasty. Patient did have slight transient improvement in her pain at that time. However, ever since the pain has been progressively worsening. Is constantly present. Is located mostly in her left low lumbar region. She was reevaluated at the pain clinic several days ago and on October 22 had x-rays which revealed a presumably new L1 compression fracture. Patient has continued to have intractable pain limiting her ability to ambulate. She denies any numbness or paresthesias associated with this. She has not had any bowel or bladder dysfunction. She has not had any saddle anesthesias fever or chills. She denies any recent new injury. Has been taking ibuprofen and tramadol for her symptoms but has not taken any medication past several hours. She has had nausea associated with the pain. She did call 911 this morning. Paramedics arrived to her house assessed her and provided her with antinausea medication. The patient then had significant control of her symptoms that she thought she could get to the hospital by private vehicle and she had her drive her here for further evaluation. She does find that any amount of movement makes the pain much worse. Related Data Home Medications Medication Instructions Recorded Confirmed cephalexin 500 mg capsule 500 mg PO QHS 01/04/16 10/22/21 diphenhydramine HCl 25 mg capsule 25 mg PO QHS 01/04/16 10/22/21 (Z-Sleep) albuterol sulfate 90 mcg/actuation 2 puff INHALATION Q6H PRN 05/17/20 10/22/21 aerosol inhaler (Ventolin HFA) folic acid 1 mg tablet 1 mg PO QHS 05/17/20 10/22/21 paroxetine HCl 20 mg tablet 40 mg PO QHS 09/20/20 10/22/21 ibuprofen 200 mg tablet 200 mg PO Q6H PRN 09/27/20 10/22/21 ruxolitinib 5 mg tablet (Jakafi) 10 mg PO BID 12/05/20 10/22/21 hydroxyurea 500 mg capsule 1,000 mg PO HS 12/16/20 10/22/21 azithromycin 500 mg tablet 500 mg PO tab 10/03/21 10/22/21 furosemide 20 mg tablet ea PO 10/03/21 10/22/21 potassium chloride 10 mEq 10 meq PO tab 10/03/21 10/22/21 tablet,extended release tramadol 50 mg tablet 50 mg PO QDAY tab 10/03/21 10/22/21 Previous Rx's Medication Instructions Recorded methocarbamol 750 mg tablet 750 mg PO Q8H #15 tab 08/31/21 ciprofloxacin HCl 500 mg tablet 500 mg PO BID #14 tab 10/05/21 (Cipro) lorazepam 1 mg tablet (Ativan) 1 mg PO QDAY PRN #10 tab 10/15/21 hydromorphone 2 mg tablet 2 mg PO BID PRN #15 tab 10/23/21 (Dilaudid) Allergies Allergy/AdvReac Type Severity Reaction Status Date / Time adhesive tape Allergy Intermediate Blister Verified 10/24/21 06:19 [place] Allergy Mild Mouth Verified 10/24/21 06:19 Blisters walnut Allergy Mild Mouth Verified 10/24/21 06:19 Blisters acetaminophen [From Percocet] Allergy Unknown Unknown Verified 10/24/21 06:19 aspirin [From Percodan] Allergy Unknown Unknown Verified 10/24/21 06:19 hydrocodone AdvReac Intermediate Nausea Verified 10/24/21 06:19 oxycodone [OXYCODONE] AdvReac Intermediate Hallucinati Verified 10/24/21 06:19 ons propoxyphene AdvReac Intermediate Hallucinati Verified 10/24/21 06:19 [From Darvocet-N] ng codeine [CODEINE] AdvReac Mild Vomiting Verified 10/24/21 06:19 Review of Systems ROS ROS Narrative: Narrative: All systems ED: reviewed and negative except as stated. Constitutional: Denies fever or chills Gastrointestinal: Denies abdominal pain or vomiting Neurological: Reports headache PFSH Narrative Patient History Narrative: Narrative: Medical/Surgical/Family History All Active Problems (Updated 12/29/21 @ 14:50 by Yefri Carroll DO) Closed compression fracture of lumbar vertebra (Acute) Thoracic back pain (Acute) Age-related osteoporosis with current pathological fracture, vertebra(e), initial encounter for fracture (Acute) Venous stasis ulcer of left lower leg with edema of left lower leg (Chronic) Incontinence (Chronic) Diarrhea (Chronic) Swelling (Chronic) Other low back pain (Chronic) Pressure ulcer (Chronic) Cholelithiasis and cholecystitis without obstruction (Chronic) Cholelithiasis (Chronic) Constipation (Chronic) Chronic obstructive lung disease (Chronic) Varicose veins, lower extremity, with inflammation, ulcerated (Chronic) Peripheral vascular disease (Chronic) Neuropathy (Chronic) Anxiety (Chronic) Moderate dehydration (Chronic) Tinea corporis (Chronic) Onychomycosis (Chronic) Compression fx, lumbar spine (Chronic) Lumbar back sprain (Chronic) History of tobacco use (Chronic) Open leg wound (Chronic) Easy bruising (Chronic) Abnormal gait (Chronic) Urinary incontinence (Chronic) Dyspnea on exertion (Chronic) Edema (Chronic) Ankle fracture (Chronic) History of surgery (Chronic) Depression (Chronic) Degenerative joint disease (Chronic) Polycythemia vera (Chronic) Low back pain (Chronic) Chronic pain (Chronic) Radiculopathy, lumbar region (Chronic) Chronic foot ulcer (Chronic) Influenza (Chronic) Right middle lobe pneumonia (Chronic) Medical History Abnormal gait uses cane Age-related osteoporosis with current pathological fracture, vertebra(e), initial encounter for fracture Ankle fracture Anxiety Cholelithiasis Cholelithiasis and cholecystitis without obstruction Chronic foot ulcer Chronic obstructive lung disease Chronic pain Compression fx, lumbar spine Constipation Degenerative joint disease Depression Diarrhea Dyspnea on exertion Easy bruising Edema History of tobacco use Incontinence Influenza Low back pain Moderate dehydration Neuropathy Onychomycosis Open leg wound vascular stalled wounds both lower legs,II classifcation C4a Other low back pain Peripheral vascular disease Polycythemia vera Pressure ulcer Radiculopathy, lumbar region Right middle lobe pneumonia Swelling Tinea corporis Urinary incontinence Varicose veins, lower extremity, with inflammation, ulcerated Venous stasis ulcer of left lower leg with edema of left lower leg Surgical History History of ankle surgery History of appendectomy History of bronchoscopy History of cholecystectomy History of hysterectomy History of laparoscopic cholecystectomy 12/17/2020 History of oophorectomy History of right oophorectomy History of skin graft History of splenectomy History of surgery TF LINDY #2 Bilat L5-S1 w/sed 12/01/201811/14 TF LINDY #1 [place] L5-S1 w/sed 11/10/2018 History of surgery multiple debridement of wound on foot History of tonsillectomy Family History Father Skin cancer Mother Arthritis Social History Smoking Status: Former smoker Alcohol Intake Frequency: does not drink Substance Use: does not use Exam Narrative Narrative: I reviewed the vital signs. Gen -patient is awake and alert and appears moderately uncomfortable but in no acute distress.. HEENT -head is atraumatic. There is no conjunctival pallor or scleral icterus. CV -S1-S2 regular rate and rhythm. Resp -breathing is nonlabored. Lungs are clear to auscultation bilaterally. There is no cyanosis. Derm -skin is warm and dry. MSK -there is no midline vertebral tenderness to percussion. There is moderate tenderness to palpation the paravertebral soft tissues in the left lumbar region with palpable underlying muscle spasm. Muscle strength is 5 out of 5 in bilateral lower extremities. Lower extremity sensation is intact. The patient has an antalgic gait. Psych -patient has appropriate affect. Neuro -patient answers questions appropriately with fluent speech. Patient moves all present extremities equally. General Limitations: no limitations Course Vital Signs Vital signs: Vital Signs Temperature 98 F 10/24/21 06:14 Pulse Rate 73 10/24/21 06:14 Respiratory Rate 18 10/24/21 06:14 Blood Pressure 116/52 10/24/21 06:14 Pulse Oximetry (%) 93 10/24/21 06:14 Temperature 98 F 10/24/21 06:14 Pulse Rate 79 10/24/21 11:30 Respiratory Rate 18 10/24/21 06:14 Blood Pressure 122/52 10/24/21 13:30 Pulse Oximetry (%) 95 10/24/21 11:30 [facility] MDM Narrative Medical decision making narrative: Patient presents with intractable back pain. The patient has no red flags for spinal cord impingement and no neurologic findings on examination so do not think she would benefit from MRI imaging or acute surgical intervention at this time. She was given multiple doses of morphine and ketamine without significant improvement in her pain. She was evaluated by physical therapy who recommended a brace and walker but still do not feel she is able to safely ambulate at this time. Given this, I recommended the patient be admitted for further treatment and she was agreeable. I did consider the possibility of an epidural abscess but given her lack of fever midline tenderness to percussion do not think that is the cause of the worsening symptoms. I discussed the patient's history examination diagnostic findings with Dr. Morgan who accepts admission. Discharge Plan Patient/Caregiver Discharge Instructions Pt seen by DREDGE OPERATOR SUPERVISOR/PA only: No Clinical Impression: Closed compression fracture of lumbar vertebra Patient Disposition: Xfer As Inpt ([facility]) Follow up with: Julio César Roberts DO [Primary Care Provider] - Prescriptions: No Action ciprofloxacin HCl [Cipro] 500 mg tablet 500 mg PO BID Qty: 14 0RF lorazepam [Ativan] 1 mg tablet 1 mg PO QDAY PRN (Reason: spasms) Qty: 10 0RF Rx Instructions: Take on tab PO prn to help with spasms. hydromorphone [Dilaudid] 2 mg tablet 2 mg PO BID PRN (Reason: pain) Qty: 15 0RF tramadol 50 mg tablet 50 mg PO QDAY 0RF furosemide 20 mg tablet PO 0RF potassium chloride 10 mEq tablet extended release 10 meq PO 0RF azithromycin 500 mg tablet 500 mg PO 0RF cephalexin 500 MG capsule 500 mg PO QHS 0RF diphenhydramine HCl [Z-Sleep] 25 MG capsule 25 mg PO QHS 0RF folic acid 1 mg Tablet 1 mg PO QHS 0RF albuterol sulfate [Ventolin HFA] 90 mcg/actuation Hfa Aerosol Inhaler 2 puff INHALATION Q6H PRN (Reason: Shortness Of Breath) 0RF paroxetine HCl 20 mg Tablet 40 mg PO QHS 0RF ibuprofen 200 mg Tablet 200 mg PO Q6H PRN (Reason: Pain) 0RF Label Comments: stopped taking as she thinks it caused an ulcer Jakafi 5 mg Tablet 10 mg PO BID 0RF hydroxyurea 500 mg Capsule 1,000 mg PO HS 0RF methocarbamol 750 mg tablet 750 mg PO Q8H Qty: 15 0RF
[2021-10-24] MEDS ORDERED: morphine 4 MG/ML VIAL IM ONE (07:14)
[2021-10-24] MEDS ORDERED: KETAMINE 10 MG/ML ML IV ONE ×2 (08:07→09:49)
[2021-10-24] MEDS ORDERED: morphine 4 MG/ML VIAL IV ONE ×2 (10:57→13:17)
--- NOTE | 2021-10-24 15:17 | Internal Med History&Physical ---
HPI History of Present Illness Patient information: Note initiated : 10/24/21 at 3:11 pm Service Date, if different from initiated Date: [] Patient: Agatha Jay 76 y/o F admitted on for Back Pain . Chief Complaint: [] Chief complaint: lower back pain History of present illness: Ms. Jay is a 76 year old F h/o COPD, polycythemia vera, osteoporosis with recent spinal compression fracture, p/w lower back pain for several weeks. She had a MRI of her back on 10/04/21 that showed a T12 compression fracture without any spinal cord impingement. She followed up with pain management and on 10/15 Dr. Ross performed a vertebroplasty. Pain initially improved then progressively worsened. A repeat imaging for a second lumbar x-ray on 10/22 revealed a new L1 compression fractures. The pain is described a 10 out of 10, localized, middle lower back pain, constant. No alleviating or exacerbating factors. She is unable to ambulate over the past 4 days. No bowel or bladder incontinence. No weakness or numbness of the lower extremities. She is also committing of constipations for the past week. She has tried tramadol and ibuprofen and lidocaine patch and the belly provide any symptom relief. Patient could not tolerate any oxycodone or hydrocodone because she would vomit minutes after taking these medications. She come to our emergency room because of uncontrolled continued lower back pain. Constitutional Constitutional: Absent chills, excessive sweating, fatigue, fever(s) or weakness EENT Eyes: Absent blurry vision, change in vision, loss of vision or other visual disturbances Ears: Absent decreased hearing or tinnitus Nose, mouth and throat: Absent abnormal hearing, dry mouth, headache(s), nasal congestion or sore throat Cardiovascular Cardiovascular: Absent chest pain, chest pain at rest, edema, irregular heart rhythm or palpatations Respiratory Respiratory: Absent cough, dyspnea or wheezing Gastrointestinal Gastrointestinal: Present constipation Musculoskeletal Musculoskeletal: Present back pain Integumentary Integumentary: Absent lesions, rash or wounds Neurological Neurological: Absent focal weakness, headache(s) or numbness Psychiatric Psychiatric: Absent anxiety, depression or hallucinations PFSH PFSH All Active Problems (Updated 10/24/21 @ 15:25 by Braxton Morgan MD) Osteoporosis (Acute) Compression fx, thoracic spine (Acute) Closed compression fracture of lumbar vertebra (Acute) Thoracic back pain (Acute) Age-related osteoporosis with current pathological fracture, vertebra(e), initial encounter for fracture (Acute) Venous stasis ulcer of left lower leg with edema of left lower leg (Chronic) Incontinence (Chronic) Diarrhea (Chronic) Swelling (Chronic) Other low back pain (Chronic) Pressure ulcer (Chronic) Cholelithiasis and cholecystitis without obstruction (Chronic) Cholelithiasis (Chronic) Constipation (Chronic) Chronic obstructive lung disease (Chronic) Varicose veins, lower extremity, with inflammation, ulcerated (Chronic) Peripheral vascular disease (Chronic) Neuropathy (Chronic) Anxiety (Chronic) Moderate dehydration (Chronic) Tinea corporis (Chronic) Onychomycosis (Chronic) Compression fx, lumbar spine (Chronic) Lumbar back sprain (Chronic) History of tobacco use (Chronic) Open leg wound (Chronic) Easy bruising (Chronic) Abnormal gait (Chronic) Urinary incontinence (Chronic) Dyspnea on exertion (Chronic) Edema (Chronic) Ankle fracture (Chronic) History of surgery (Chronic) Depression (Chronic) Degenerative joint disease (Chronic) Polycythemia vera (Chronic) Low back pain (Chronic) Chronic pain (Chronic) Radiculopathy, lumbar region (Chronic) Chronic foot ulcer (Chronic) Influenza (Chronic) Right middle lobe pneumonia (Chronic) Medical History Abnormal gait uses cane Age-related osteoporosis with current pathological fracture, vertebra(e), initial encounter for fracture Ankle fracture Anxiety Cholelithiasis Cholelithiasis and cholecystitis without obstruction Chronic foot ulcer Chronic obstructive lung disease Chronic pain Compression fx, lumbar spine Constipation Degenerative joint disease Depression Diarrhea Dyspnea on exertion Easy bruising Edema History of tobacco use Incontinence Influenza Low back pain Moderate dehydration Neuropathy Onychomycosis Open leg wound vascular stalled wounds both lower legs,II classifcation C4a Other low back pain Peripheral vascular disease Polycythemia vera Pressure ulcer Radiculopathy, lumbar region Right middle lobe pneumonia Swelling Tinea corporis Urinary incontinence Varicose veins, lower extremity, with inflammation, ulcerated Venous stasis ulcer of left lower leg with edema of left lower leg Surgical History History of ankle surgery History of appendectomy History of bronchoscopy History of cholecystectomy History of hysterectomy History of laparoscopic cholecystectomy 12/17/2020 History of oophorectomy History of right oophorectomy History of skin graft History of splenectomy History of surgery TF LINDY #2 Bilat L5-S1 w/sed 12/01/201811/14 TF LINDY #1 [place] L5-S1 w/sed 11/10/2018 History of surgery multiple debridement of wound on foot History of tonsillectomy Family History Father Skin cancer Mother Arthritis Social History (Updated 11/15/20 @ 13:21 by Heather Lara) marital status: education level: high school occupation: History Tutor worker alcohol intake frequency: does not drink substance use type: does not use MEDS/ALLERGIES Home Medications and Allergies Home Medications Medication Instructions Recorded Confirmed Type cephalexin 500 mg capsule 500 mg PO QHS 01/04/16 10/22/21 History diphenhydramine HCl 25 mg capsule 25 mg PO QHS 01/04/16 10/22/21 History (Z-Sleep) albuterol sulfate 90 mcg/actuation 2 puff INHALATION Q6H PRN 05/17/20 10/22/21 History aerosol inhaler (Ventolin HFA) folic acid 1 mg tablet 1 mg PO QHS 05/17/20 10/22/21 History paroxetine HCl 20 mg tablet 40 mg PO QHS 09/20/20 10/22/21 History ibuprofen 200 mg tablet 200 mg PO Q6H PRN 09/27/20 10/22/21 History ruxolitinib 5 mg tablet (Jakafi) 10 mg PO BID 12/05/20 10/22/21 History hydroxyurea 500 mg capsule 1,000 mg PO HS 12/16/20 10/22/21 History methocarbamol 750 mg tablet 750 mg PO Q8H #15 tab 08/31/21 10/22/21 Rx azithromycin 500 mg tablet 500 mg PO tab 10/03/21 10/22/21 History furosemide 20 mg tablet ea PO 10/03/21 10/22/21 History potassium chloride 10 mEq 10 meq PO tab 10/03/21 10/22/21 History tablet,extended release tramadol 50 mg tablet 50 mg PO QDAY tab 10/03/21 10/22/21 History ciprofloxacin HCl 500 mg tablet 500 mg PO BID #14 tab 10/05/21 10/22/21 Rx (Cipro) lorazepam 1 mg tablet (Ativan) 1 mg PO QDAY PRN #10 tab 10/15/21 10/22/21 Rx hydromorphone 2 mg tablet 2 mg PO BID PRN #15 tab 10/23/21 Rx (Dilaudid) Allergies Allergy/AdvReac Type Severity Reaction Status Date / Time adhesive tape Allergy Intermediate Blister Verified 10/24/21 06:19 [place] Allergy Mild Mouth Verified 10/24/21 06:19 Blisters [place] Allergy Mild Mouth Verified 10/24/21 06:19 Blisters acetaminophen [From Percocet] Allergy Unknown Unknown Verified 10/24/21 06:19 aspirin [From Percodan] Allergy Unknown Unknown Verified 10/24/21 06:19 hydrocodone AdvReac Intermediate Nausea Verified 10/24/21 06:19 oxycodone [OXYCODONE] AdvReac Intermediate Hallucinati Verified 10/24/21 06:19 ons propoxyphene AdvReac Intermediate Hallucinati Verified 10/24/21 06:19 [From Darvocet-N] ng codeine [CODEINE] AdvReac Mild Vomiting Verified 10/24/21 06:19 EXAM Constitutional Vitals: Temp Pulse Resp BP Pulse Ox 36.6 C 83 18 115/69 96 10/24/21 06:14 10/24/21 14:30 10/24/21 06:14 10/24/21 14:30 10/24/21 14:30 General appearance: cooperative and moderate distress Head Head exam: Present atraumatic and normocephalic Eye Eye exam: Present EOMI and PERRL ENT ENT exam: Present mucous membranes moist, normal exam and normal external ear exam Neck Neck exam: Present normal inspection; Absent lymphadenopathy, tenderness or thyromegaly Respiratory Respiratory exam: Absent accessory muscle use, respiratory distress or wheezes Cardiovascular Cardiovascular exam: Present normal rate and rhythm; Absent JVD GI/Abdominal GI/Abdominal exam: Present normal bowel sounds and soft; Absent organomegaly or tenderness Extremities Exam Extremities exam: Present full ROM, normal capillary refill and normal inspection; Absent tenderness Back Exam Back exam: Present tenderness and vertebral tenderness Neurological Exam Neurological exam: Present alert, CN II-XII intact and oriented X3; Absent motor sensory deficit Psychiatric Psychiatric exam: Present normal affect and normal mood; Absent anxious or depressed Skin Skin exam: Present dry and intact A/P Assessment and plan (1) Closed compression fracture of lumbar vertebra: Status: Acute (2) Compression fx, thoracic spine: Status: Acute (3) Constipation: Status: Chronic Qualifiers: Constipation type: drug induced constipation Qualified Code(s): K59.03 - Drug induced constipation (4) Chronic obstructive lung disease: Status: Chronic (5) Polycythemia vera: Status: Chronic (6) Osteoporosis: Status: Acute Narrative A/P Narrative: Assessment and Plans: 1. 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 COPD, stable: Supplemental oxygen therapy titrate to achieve spo2>=88% DuoNEB NEB PRN wheezing or SOB 3. Constipation, drug induced: Colace Senna Miralax Milk of magnesia 4. Polycythemia vera: Hydroxyurea Ruxolitinib GI ppx: not currently indicated DVT ppx: SCDs Code status: Full Prognosis: stable Disposition: Observation med surg Time Spent With Patient Time: Total time spent is greater than 50% in coordination of care (as documented) at patient's floor/unit and/or counseling patient: Total time spent with greater than 50% in coordination of care (as documented) at patient's floor/unit and/or counseling patient:: 25 - 35 minutes
[2021-10-24 15:29] LABS: POC Blood Urea Nitrogen 21 mg/dL (6-20); POC CO2 19 mmol/L (22-30); POC Calcium, Ionized 1.23 mmEq/L (1.16-1.32); POC Chloride 111 mEq/L (96-108); POC Creatinine 0.9 mg/dL (0.6-1.2); POC Glucose, Random 99 mg/dL (70-105); POC Hematocrit 39 % (36-48); POC Potassium 4.1 mEql/L (3.3-5.1); POC Sodium 142 mEq/L (133-145)
[2021-10-24 17:04] LABS: Basophils # (Auto) 0.46 K/mcL (0.00-0.30); Basophils % (Auto) 1.6 % (0.0-2.0); Eosinophils # (Auto) 0.03 K/mcL (0.00-0.70); Eosinophils % (Auto) 0.1 % (0.0-7.0); Hematocrit 39.6 % (34.1-44.9); Lymphocytes # (Auto) 6.64 K/mcL (1.50-4.80); Lymphocytes % (Auto) 22.5 % (15.5-49.0); Mean Cell Volume 63.9 fL (80.0-100.0); Mean Corpuscular HGB Conc 27.8 g/dL (31.0-36.0); Monocytes # (Auto) 5.09 K/mcL (0.10-0.90); Monocytes % (Auto) 17.3 % (1.0-12.0); Neutrophils % (Auto) 58.5 % (38.0-78.0); Platelet Count 463 K/mcL (140-440); Red Cell Distribution Width 34.2 % (11.5-14.5); WBC 29.5 K/mcL (4.5-11.0)
[2021-10-24] MEDS ORDERED: IPRATROPIUM/ALBUTEROL 3 ML AMPUL.NEB NEB PRN (17:56)
[2021-10-24] MEDS ORDERED: ONDANSETRON 4 MG/2 ML VIAL IV PRN (17:56)
[2021-10-24] MEDS ORDERED: POLYETHYLENE GLYCOL 3350 17 GM PACKET PO PRN (17:56)
[2021-10-24] MEDS ORDERED: HYDROmorphone 2 MG TABLET PO PRN (17:56)
[2021-10-24] MEDS ORDERED: HYDROmorphone 1 MG/ML SYRINGE IV PRN (17:56)
[2021-10-24] MEDS ORDERED: IBUPROFEN TABLET (PP) 1 TABLET TABLET PO PRN (17:56)
[2021-10-24] MEDS ORDERED: ALBUTEROL SULFATE 200 PUFF INHALER INH PRN (17:56)
[2021-10-24] MEDS ORDERED: ZOLPIDEM 5 MG TABLET PO PRN (17:56)
[2021-10-24] MEDS ORDERED: MAGNESIUM HYDROXIDE 30 ML ORAL.SUSP PO PRN (17:56)
[2021-10-24] MEDS ORDERED: LORazepam (PP) 1 MG TABLET (#4) PO PRN (17:56)
[2021-10-24] MEDS ORDERED: LORazepam 1 MG TABLET PO PRN (19:38)
[2021-10-24] MEDS: METHOCARBAMOL 750 MG TABLET PO SCH (20:13)
[2021-10-24] MEDS ORDERED: HYDROmorphone 2 MG TABLET ONE (20:17)
[2021-10-24] MEDS ORDERED: METHOCARBAMOL 750 MG TABLET PO ONE (20:17)
[2021-10-24] MEDS: diphenhydrAMINE 25 MG CAPSULE PO SCH (21:58)
[2021-10-24] MEDS: SENNOSIDES 1 TABLET PO SCH (21:59)
[2021-10-24] MEDS: PARoxetine 20 MG TABLET PO SCH (21:59)
[2021-10-24] MEDS: DOCUSATE SODIUM 100 MG CAPSULE PO SCH (21:59)
[2021-10-24] MEDS: FOLIC ACID 1 MG TABLET PO SCH (22:01)
[2021-10-24] MEDS: HYDROXYUREA 500 MG CAPSULE PO SCH (22:01)
[2021-10-24] MEDS: 0.9 % SODIUM CHLORIDE 10 ML SYRINGE IV SCH (22:02)
[2021-10-24] MEDS: RUXOLITINIB 5 MG PO SCH (22:02)
[2021-10-25] MEDS: IBUPROFEN 600 MG TABLET PO PRN ×3 (00:48→15:13)
[2021-10-25] MEDS: traMADol 50 MG TABLET PO PRN ×3 (00:48→13:43)
[2021-10-25] MEDS: METHOCARBAMOL 750 MG TABLET PO SCH ×3 (06:03→21:57)
[2021-10-25] MEDS: 0.9 % SODIUM CHLORIDE 10 ML SYRINGE IV SCH ×3 (06:03→21:53)
[2021-10-25] MEDS: POTASSIUM CHLORIDE 10 MEQ TABLET PO SCH ×2 (08:00→08:12)
[2021-10-25] MEDS: DOCUSATE SODIUM 100 MG CAPSULE PO SCH ×2 (08:01→21:51)
[2021-10-25] MEDS: FUROSEMIDE 20 MG TABLET PO SCH ×2 (08:01→08:45)
[2021-10-25] MEDS: RUXOLITINIB 5 MG PO SCH ×2 (08:45→21:54)
[2021-10-25] MEDS ORDERED: traMADol (PP) 50 MG TABLET (#4) PO SCH (09:00)
--- NOTE | 2021-10-25 11:52 | Internal Med Progress Note ---
SUBJECTIVE Subjective Patient information: Note initiated : 10/25/21 at 11:49 am Service Date, if different from initiated Date: [] Patient: Agatha Jay 76 y/o F admitted on 10/24/21 for Back Pain . Chief Complaint: [] Interval history: Ms. Jay is a 76 year old F h/o COPD, polycythemia vera, osteoporosis with recent spinal compression fracture, p/w lower back pain for several weeks. She had a MRI of her back on 10/04/21 that showed a T12 compression fracture without any spinal cord impingement. She followed up with pain management and on 10/15 Dr. Ross performed a vertebroplasty. Pain initially improved then progressively worsened. A repeat imaging for a second lumbar x-ray on 10/22 revealed a new L1 compression fractures. The pain is described a 10 out of 10, localized, middle lower back pain, constant. No alleviating or exacerbating factors. She is unable to ambulate over the past 4 days. No bowel or bladder incontinence. No weakness or numbness of the lower extremities. She is also committing of constipations for the past week. She has tried tramadol and ibuprofen and lidocaine patch and the belly provide any symptom relief. Patient could not tolerate any oxycodone or hydrocodone because she would vomit minutes after taking these medications. She come to our emergency room because of uncontrolled continued lower back pain. 10/25: There was no major overnight events. c/o severe back pain. Denies any fever or chills. Pending SNF placement. Constitutional Vitals: Vital Signs Temp Pulse Resp BP Pulse Ox 36.2 C 72 14 121/64 88 L 10/25/21 07:11 10/25/21 07:11 10/25/21 07:11 10/25/21 07:11 10/25/21 07:11 Period Temp Pulse Resp BP Sys/[place] Pulse Ox Last 24 Hr 36.2 C-37.0 C 71-89 14-18 91-132/49-76 88-97 Intake and Output 10/24/21 10/25/21 10/25/21 21:59 05:59 13:59 Intake Total 350 Output Total 275 125 Balance -275 225 Weight 44.135 kg Intake & Output: Intake & Output 10/24/21 10/25/21 10/25/21 21:59 05:59 13:59 Intake Total 350 Output Total 275 125 Balance -275 225 Weight 44.135 kg Intake: Oral 350 Output: Void Amount 275 125 Other: Urine Appearance Clear Urine Color Bright Yellow Urine Odor Strong Head Head exam: Present atraumatic and normal inspection Eye Eye exam: Present normal appearance ENT ENT exam: Present mucous membranes moist, normal exam and normal external ear exam Neck Neck exam: Present normal inspection Respiratory Respiratory exam: Present normal respiratory exam Cardiovascular Cardiovascular exam: Present normal rate and rhythm GI/Abdominal GI/Abdominal exam: Present normal bowel sounds Back Exam Back exam: Present normal inspection and tenderness Neurological Exam Neurological exam: Present alert and oriented X3 Skin Skin exam: Present intact and warm OBJ DATA Labs CBC & Chem 7: 10/24/21 15:55 Labs: Abnormal Lab Results 10/24/21 10/24/21 15:55 15:18 WBC 29.5 H RBC 6.20 H Hgb 11.0 L MCV 63.9 L MCH 17.7 L MCHC 27.8 L RDW 34.2 H Plt Count 463 H [place] % (Auto) 17.3 H Lymph # (Auto) 6.64 H [place] # (Auto) 5.09 H Baso # (Auto) 0.46 H Absolute Neutrophils 17.25 H POC Chloride 111 H POC Total CO2 19 L POC BUN 21 H Meds: Medications Albuterol Sulfate (Albuterol Sulfate 200 Puff Inhaler) 2 puff INH Q6HP PRN PRN Reason: Shortness Of Breath Albuterol/Ipratropium (Ipratropium/Albuterol 3 Ml Ampul.Neb) 3 ml NEB Q4HRT PRN PRN Reason: Wheezing Diphenhydramine HCl (Diphenhydramine 25 Mg Capsule) 25 mg PO QHS [facility] Last Admin: 10/24/21 21:58 Dose: 25 mg Documented by: Docusate Sodium (Docusate Sodium 100 Mg Capsule) 100 mg PO BID [facility] Last Admin: 10/25/21 08:01 Dose: 100 mg Documented by: Folic Acid (Folic Acid 1 Mg Tablet) 1 mg PO QHS [facility] Last Admin: 10/24/21 22:01 Dose: Not Given Documented by: Furosemide (Furosemide 20 Mg Tablet) 20 mg PO DAILY [facility] Last Admin: 10/25/21 08:45 Dose: Not Given Documented by: Hydromorphone HCl (Hydromorphone 1 Mg/Ml Syringe) 1 mg IV Q4HP PRN; Protocol PRN Reason: Per Pain Protocol Hydromorphone HCl (Hydromorphone 2 Mg Tablet) 2 mg PO BIDP PRN; Protocol PRN Reason: pain Hydroxyurea (Hydroxyurea 500 Mg Capsule) 1,000 mg PO [facility] Last Admin: 10/24/21 22:01 Dose: 500 mg Documented by: Ibuprofen (Ibuprofen 600 Mg Tablet) 600 mg PO QIDP PRN; Protocol PRN Reason: PAIN/FEVER > 101 Last Admin: 10/25/21 09:23 Dose: 600 mg Documented by: Lorazepam (Lorazepam 1 Mg Tablet) 1 mg PO DAILYP PRN PRN Reason: ANXIETY/SEDATION Magnesium Hydroxide (Magnesium Hydroxide 30 Ml Oral.Susp) 30 ml PO BIDP PRN PRN Reason: Constipation Methocarbamol (Methocarbamol 750 Mg Tablet) 750 mg PO Q8H [facility] Last Admin: 10/25/21 06:03 Dose: 750 mg Documented by: Ondansetron HCl (Ondansetron 4 Mg/2 Ml Vial) 4 mg IV Q6HP PRN PRN Reason: Nausea And Vomiting Paroxetine HCl (Paroxetine 20 Mg Tablet) 40 mg PO QHS [facility] Last Admin: 10/24/21 21:59 Dose: 40 mg Documented by: Ruxolitinib [Jakafi] (5 Mg Tablet) 2 dose PO BID [facility] Last Admin: 10/25/21 08:45 Dose: Not Given Documented by: Polyethylene Glycol (Polyethylene Glycol 3350 17 Gm Packet) 17 gm PO DAILYP PRN PRN Reason: Constipation Potassium Chloride (Potassium Chloride 10 Meq Tablet) 10 meq PO [facility] Last Admin: 10/25/21 08:12 Dose: Not Given Documented by: Senna (Sennosides 1 Tablet) 2 tab PO [facility] Last Admin: 10/24/21 21:59 Dose: 2 tab Documented by: Sodium Chloride (0.9 % Sodium Chloride 10 Ml Syringe) 10 ml IV Q8 [facility] Last Admin: 10/25/21 06:03 Dose: 10 ml Documented by: Tramadol HCl (Tramadol 50 Mg Tablet) 50 mg PO Q6HP PRN; Protocol PRN Reason: Pain Last Admin: 10/25/21 08:00 Dose: 50 mg Documented by: Zolpidem Tartrate (Zolpidem 5 Mg Tablet) 5 mg PO HSP PRN PRN Reason: Insomnia A/P Assessment and plan (1) Closed compression fracture of lumbar vertebra: Status: Acute (2) Compression fx, thoracic spine: Status: Acute (3) Constipation: Status: Chronic Qualifiers: Constipation type: drug induced constipation Qualified Code(s): K59.03 - Drug induced constipation (4) Chronic obstructive lung disease: Status: Chronic (5) Polycythemia vera: Status: Chronic (6) Osteoporosis: Status: Acute Narrative A/P Narrative: Assessment and Plans: 1. Thoracic and lumbar (T12 and L1) compression fracture associated with osteoporosis: Observation med surg or pain management Dilaudid IV PRN breakthrough pain Dilaudid PO PRN severe pain Tramadol PO PRN moderate pain Ibuprofen PO PRN mild pain Methocarbamol Physical therapy Occupational therapy Pending SNF placement 2. COPD, stable: Supplemental oxygen therapy titrate to achieve spo2>=88%, currently on 3L/min oxygen DuoNEB NEB PRN wheezing or SOB 3. Constipation, drug induced: Colace Senna Miralax Milk of magnesia 4. Polycythemia vera: Hydroxyurea Ruxolitinib GI ppx: not currently indicated DVT ppx: SCDs Code status: Full Prognosis: stable Disposition: inpatient med surg; pending SNF/rehab placement (Friday?) Time Spent With Patient Time: Total time spent is greater than 50% in coordination of care (as documented) at patient's floor/unit and/or counseling patient: Total time spent with greater than 50% in coordination of care (as documented) at patient's floor/unit and/or counseling patient:: 25 - 35 minutes QUALITY VTE Deep Vein Thrombosis/Pulmonary Embolism Present on Admission: No
[2021-10-25] MEDS: LIDOCAINE PATCH TOPICAL SCH ×2 (18:43→21:51)
[2021-10-25] MEDS: PARoxetine 20 MG TABLET PO SCH (21:51)
[2021-10-25] MEDS: FOLIC ACID 1 MG TABLET PO SCH (21:51)
[2021-10-25] MEDS: diphenhydrAMINE 25 MG CAPSULE PO SCH (21:51)
[2021-10-25] MEDS: SENNOSIDES 1 TABLET PO SCH (21:51)
[2021-10-25] MEDS: HYDROXYUREA 500 MG CAPSULE PO SCH (21:51)
[2021-10-26] MEDS: traMADol 50 MG TABLET PO PRN ×3 (05:00→17:57)
[2021-10-26] MEDS: 0.9 % SODIUM CHLORIDE 10 ML SYRINGE IV SCH ×3 (05:02→20:05)
[2021-10-26] MEDS: METHOCARBAMOL 750 MG TABLET PO SCH ×3 (05:02→22:26)
[2021-10-26] MEDS: DOCUSATE SODIUM 100 MG CAPSULE PO SCH ×2 (08:11→20:03)
[2021-10-26] MEDS: IBUPROFEN 600 MG TABLET PO PRN ×3 (08:11→17:57)
[2021-10-26] MEDS: FUROSEMIDE 20 MG TABLET PO SCH (08:12)
[2021-10-26] MEDS: POTASSIUM CHLORIDE 10 MEQ TABLET PO SCH (08:12)
[2021-10-26] MEDS: RUXOLITINIB 5 MG PO SCH ×2 (08:35→20:05)
--- NOTE | 2021-10-26 11:03 | Internal Med Progress Note ---
SUBJECTIVE Subjective Patient information: Note initiated : 10/26/21 at 11:01 am Service Date, if different from initiated Date: [] Patient: Agatha Jay 76 y/o F admitted on 10/25/21 for Back Pain . Chief Complaint: [] Interval history: Ms. Jay is a 76 year old F h/o COPD, polycythemia vera, osteoporosis with recent spinal compression fracture, p/w lower back pain for several weeks. She had a MRI of her back on 10/04/21 that showed a T12 compression fracture without any spinal cord impingement. She followed up with pain management and on 10/15 Dr. Ross performed a vertebroplasty. Pain initially improved then progressively worsened. A repeat imaging for a second lumbar x-ray on 10/22 revealed a new L1 compression fractures. The pain is described a 10 out of 10, localized, middle lower back pain, constant. No alleviating or exacerbating factors. She is unable to ambulate over the past 4 days. No bowel or bladder incontinence. No weakness or numbness of the lower extremities. She is also committing of constipations for the past week. She has tried tramadol and ibuprofen and lidocaine patch and the belly provide any symptom relief. Patient could not tolerate any oxycodone or hydrocodone because she would vomit minutes after taking these medications. She come to our emergency room because of uncontrolled continued lower back pain. 10/25: There was no major overnight events. c/o severe back pain. Denies any fever or chills. Pending SNF placement. 10/26: There was no major overnight events. c/o severe back pain. c/ constipation. Denies any fever or chills. Pending SNF placement. Constitutional Vitals: Vital Signs Temp Pulse Resp BP Pulse Ox 37.1 C 76 14 123/62 91 10/26/21 07:21 10/26/21 07:21 10/26/21 07:21 10/26/21 07:21 10/26/21 07:21 Period Temp Pulse Resp BP Sys/Monreal Pulse Ox Last 24 Hr 36.7 C-37.7 C 73-80 14-20 115-135/55-70 88-91 Intake and Output 10/25/21 10/26/21 10/26/21 21:59 05:59 13:59 Intake Total 250 Output Total 200 202 Balance -200 48 Weight 45.314 kg Intake & Output: Intake & Output 10/25/21 10/26/21 10/26/21 21:59 05:59 13:59 Intake Total 250 Output Total 200 202 Balance -200 48 Weight 45.314 kg Intake: Oral 250 Output: Void Amount 200 200 # of times incontinent of urine 2 Other: Urine Appearance Clear Urine Color Dark Yellow Stool Size Small General appearance: cooperative, no acute distress and thin Head Head exam: Present atraumatic and normal inspection Eye Eye exam: Present normal appearance ENT ENT exam: Present mucous membranes moist, normal exam and normal external ear exam Neck Neck exam: Present normal inspection Respiratory Respiratory exam: Present normal respiratory exam Cardiovascular Cardiovascular exam: Present normal rate and rhythm GI/Abdominal GI/Abdominal exam: Present hypoactive bowel sounds Back Exam Back exam: Present normal inspection and tenderness Neurological Exam Neurological exam: Present alert and oriented X3 Skin Skin exam: Present intact and warm OBJ DATA Labs CBC & Chem 7: 10/24/21 15:55 Labs: Abnormal Lab Results 10/24/21 10/24/21 15:55 15:18 WBC 29.5 H RBC 6.20 H Hgb 11.0 L MCV 63.9 L MCH 17.7 L MCHC 27.8 L RDW 34.2 H Plt Count 463 H [place] % (Auto) 17.3 H Lymph # (Auto) 6.64 H [place] # (Auto) 5.09 H Baso # (Auto) 0.46 H Absolute Neutrophils 17.25 H POC Chloride 111 H POC Total CO2 19 L POC BUN 21 H Meds: Medications Albuterol Sulfate (Albuterol Sulfate 200 Puff Inhaler) 2 puff INH Q6HP PRN PRN Reason: Shortness Of Breath Albuterol/Ipratropium (Ipratropium/Albuterol 3 Ml Ampul.Neb) 3 ml NEB Q4HRT PRN PRN Reason: Wheezing Diphenhydramine HCl (Diphenhydramine 25 Mg Capsule) 25 mg PO QHS [facility] Last Admin: 10/25/21 21:51 Dose: 25 mg Documented by: Docusate Sodium (Docusate Sodium 100 Mg Capsule) 100 mg PO BID [facility] Last Admin: 10/26/21 08:11 Dose: 100 mg Documented by: Folic Acid (Folic Acid 1 Mg Tablet) 1 mg PO QHS [facility] Last Admin: 10/25/21 21:51 Dose: 1 mg Documented by: Furosemide (Furosemide 20 Mg Tablet) 20 mg PO DAILY [facility] Last Admin: 10/26/21 08:12 Dose: Not Given Documented by: Hydromorphone HCl (Hydromorphone 1 Mg/Ml Syringe) 1 mg IV Q4HP PRN; Protocol PRN Reason: Per Pain Protocol Hydromorphone HCl (Hydromorphone 2 Mg Tablet) 2 mg PO BIDP PRN; Protocol PRN Reason: pain Hydroxyurea (Hydroxyurea 500 Mg Capsule) 1,[address] [facility] Last Admin: 10/25/21 21:51 Dose: 500 mg Documented by: Ibuprofen (Ibuprofen 600 Mg Tablet) 600 mg PO QIDP PRN; Protocol PRN Reason: PAIN/FEVER > 101 Last Admin: 10/26/21 08:11 Dose: 600 mg Documented by: Lidocaine (Lidocaine Patch) [address] [facility] Last Admin: 10/25/21 21:51 Dose: 1 patch Documented by: Lorazepam (Lorazepam 1 Mg Tablet) 1 mg PO DAILYP PRN PRN Reason: ANXIETY/SEDATION Magnesium Hydroxide (Magnesium Hydroxide 30 Ml Oral.Susp) 30 ml PO BIDP PRN PRN Reason: Constipation Methocarbamol (Methocarbamol 750 Mg Tablet) 750 mg PO Q8H [facility] Last Admin: 10/26/21 05:02 Dose: 750 mg Documented by: Ondansetron HCl (Ondansetron 4 Mg/2 Ml Vial) 4 mg IV Q6HP PRN PRN Reason: Nausea And Vomiting Paroxetine HCl (Paroxetine 20 Mg Tablet) 40 mg PO QHS [facility] Last Admin: 10/25/21 21:51 Dose: 40 mg Documented by: Ruxolitinib [Jakafi] (5 Mg Tablet) 2 dose PO BID [facility] Last Admin: 10/26/21 08:35 Dose: Not Given Documented by: Polyethylene Glycol (Polyethylene Glycol 3350 17 Gm Packet) 17 gm PO DAILYP PRN PRN Reason: Constipation Potassium Chloride (Potassium Chloride 10 Meq Tablet) 10 meq PO [facility] Last Admin: 10/26/21 08:12 Dose: Not Given Documented by: Senna (Sennosides 1 Tablet) [address] [facility] Last Admin: 10/25/21 21:51 Dose: 2 tab Documented by: Sodium Chloride (0.9 % Sodium Chloride 10 Ml Syringe) 10 ml IV Q8 [facility] Last Admin: 10/26/21 05:02 Dose: Not Given Documented by: Tramadol HCl (Tramadol 50 Mg Tablet) 100 mg PO Q6HP PRN; Protocol PRN Reason: Pain Last Admin: 10/26/21 05:00 Dose: 100 mg Documented by: Zolpidem Tartrate (Zolpidem 5 Mg Tablet) 5 mg PO HSP PRN PRN Reason: Insomnia A/P Assessment and plan (1) Closed compression fracture of lumbar vertebra: Status: Acute (2) Compression fx, thoracic spine: Status: Acute (3) Constipation: Status: Chronic Qualifiers: Constipation type: drug induced constipation Qualified Code(s): K59.03 - Drug induced constipation (4) Chronic obstructive lung disease: Status: Chronic (5) Polycythemia vera: Status: Chronic (6) Osteoporosis: Status: Acute Narrative A/P Narrative: Assessment and Plans: 1. Thoracic and lumbar (T12 and L1) compression fracture associated with osteoporosis: Observation med surg or pain management Dilaudid IV PRN breakthrough pain Dilaudid PO PRN severe pain Tramadol PO PRN moderate pain Ibuprofen PO PRN mild pain Methocarbamol Physical therapy Occupational therapy Pending SNF placement 2. COPD, stable: Supplemental oxygen therapy titrate to achieve spo2>=88%, currently on room air DuoNEB NEB PRN wheezing or SOB 3. Constipation, drug induced: Colace Senna Miralax Milk of magnesia 4. Polycythemia vera: Hydroxyurea GI ppx: not currently indicated DVT ppx: SCDs Code status: Full Prognosis: stable Disposition: inpatient med surg; pending SNF/rehab placement (Friday?) Time Spent With Patient Time: Total time spent is greater than 50% in coordination of care (as documented) at patient's floor/unit and/or counseling patient: Total time spent with greater than 50% in coordination of care (as documented) at patient's floor/unit and/or counseling patient:: 25 - 35 minutes QUALITY VTE Deep Vein Thrombosis/Pulmonary Embolism Present on Admission: No
[2021-10-26] MEDS: LIDOCAINE PATCH TOPICAL SCH (20:03)
[2021-10-26] MEDS: SENNOSIDES 1 TABLET PO SCH (20:03)
[2021-10-26] MEDS: FOLIC ACID 1 MG TABLET PO SCH (20:03)
[2021-10-26] MEDS: PARoxetine 20 MG TABLET PO SCH (20:03)
[2021-10-26] MEDS: diphenhydrAMINE 25 MG CAPSULE PO SCH (20:03)
[2021-10-26] MEDS: HYDROXYUREA 500 MG CAPSULE PO SCH (20:04)
[2021-10-27] MEDS: IBUPROFEN 600 MG TABLET PO PRN (04:21)
[2021-10-27] MEDS: traMADol 50 MG TABLET PO PRN (04:22)
[2021-10-27] MEDS: 0.9 % SODIUM CHLORIDE 10 ML SYRINGE IV SCH ×3 (05:14→20:19)
[2021-10-27] MEDS: METHOCARBAMOL 750 MG TABLET PO SCH ×3 (05:55→21:49)
[2021-10-27] MEDS: DOCUSATE SODIUM 100 MG CAPSULE PO SCH ×2 (08:14→20:17)
[2021-10-27] MEDS: POTASSIUM CHLORIDE 10 MEQ TABLET PO SCH (08:14)
[2021-10-27] MEDS: FUROSEMIDE 20 MG TABLET PO SCH (08:15)
[2021-10-27] MEDS: RUXOLITINIB 5 MG PO SCH ×2 (10:50→20:18)
[2021-10-27 11:35] LABS: ALT/SGPT 7 U/L (<40); AST/SGOT 12 U/L (<32); Albumin 3.8 gm/dL (3.2-5.2); Albumin/Globulin Ratio 1.6 (1.0-2.3); Alkaline Phosphatase 109 U/L (39-117); Bilirubin,Direct < 0.2 mg/dL (0-0.3); Bilirubin,Total 0.2 mg/dL (0.1-1.0); Blood Urea Nitrogen 18 mg/dL (8-23); Calcium 8.6 mg/dL (8.6-10.4); Carbon Dioxide 21 mmol/L (22-30); Chloride 106 mmol/L (96-108); Globulin 2.4 gm/dL (2.2-3.7); Glomerular Filtration Rate 89; Glucose 121 mg/dL (70-105); Lactate Dehydrogenase 387 U/L (135-225); Phosphorous 3.2 mg/dL (2.5-4.5); Triglycerides 214 mg/dL (<150); Uric Acid 5.1 mg/dL (2.5-8.0)
[2021-10-27] MEDS ORDERED: BISACODYL 10 MG SUPP.RECT PR ONE (16:14)
[2021-10-27] MEDS: HYDROmorphone 2 MG TABLET PO PRN (17:10)
--- NOTE | 2021-10-27 18:12 | Internal Med Progress Note ---
SUBJECTIVE Subjective Patient information: Note initiated : 10/27/21 at 6:07 pm Service Date, if different from initiated Date: [] Patient: Agatha Jay 76 y/o F admitted on 10/25/21 for Back Pain . Chief Complaint: f/u vertebral fracture Interval history: Ms. Jay is a 76 year old F h/o COPD, polycythemia vera, osteoporosis with recent spinal compression fracture, p/w lower back pain for several weeks. She had a MRI of her back on 10/04/21 that showed a T12 compression fracture without any spinal cord impingement. She followed up with pain management and on 10/15 Dr. Ross performed a vertebroplasty. Pain initially improved then progressively worsened. A repeat imaging for a second lumbar x-ray on 10/22 revealed a new L1 compression fractures. The pain is described a 10 out of 10, localized, middle lower back pain, constant. No alleviating or exacerbating factors. She is unable to ambulate over the past 4 days. No bowel or bladder incontinence. No weakness or numbness of the lower extremities. She is also committing of constipations for the past week. She has tried tramadol and ibuprofen and lidocaine patch and they barely provide any symptom relief. Patient could not tolerate any oxycodone or hydrocodone because she would vomit minutes after taking these medications. She come to our emergency room because of uncontrolled continued lower back pain. 10/25: There was no major overnight events. c/o severe back pain. Denies any fever or chills. Pending SNF placement. 10/26: There was no major overnight events. c/o severe back pain. c/ constipation. Denies any fever or chills. Pending SNF placement. 10/27: Case reviewed. Apparently [facility] (pain clinic) was planning to schedule a vertebroplasty for the L1 fracture. Patient is not interested in SNF placement. The [facility] office was closed to yesterday for New Year's, will be open on Friday. Pain is mostly controlled with minimal exertion on tramadol and ibuprofen. She feels she may not have given oral hydromorphone an adequate trial at home prior to presenting to the emergency department. She declined to work with physical therapy this morning as she was working with bowel care and was concerned about having to get to the commode quickly. Starting to have some bowel movements, would be interested in suppository. Discussed methylnaltrexone, but will attempt suppository first, as methylnaltrexone may interfere with peripheral analgesia as well. Constitutional Vitals: Vital Signs Temp Pulse Resp BP Pulse Ox 98.6 F 73 14 132/60 90 10/27/21 15:42 10/27/21 15:42 10/27/21 15:42 10/27/21 15:42 10/27/21 15:42 Period Temp Pulse Resp BP Sys/Monreal Pulse Ox Last 24 Hr 97.2 F-98.6 F 69-86 14-18 119-132/60-73 89-95 Intake and Output 10/27/21 10/27/21 10/27/21 05:59 13:59 21:59 Intake Total 700 480 Output Total 152 Balance 548 480 GENERAL: In bed, appears to be mildly uncomfortable at rest RESPIRATORY: Clear bilaterally CARDIOVASCULAR: Regular ABDOMEN: Mild distention, firm, active bowel sounds EXTREMITIES: No edema NEURO: Alert, oriented x3, lower extremities neurologically intact Intake & Output: Intake & Output 10/27/21 10/27/21 10/27/21 05:59 13:59 21:59 Intake Total 700 480 Output Total 152 Balance 548 480 Intake: Oral 700 480 Output: Void Amount 150 # of times incontinent of urine 2 Other: Urine Appearance Clear Urine Color Dark Yellow OBJ DATA Labs CBC & Chem 7: 10/24/21 15:55 10/27/21 10:36 Labs: Abnormal Lab Results 10/27/21 10:36 Carbon Dioxide 21 L Glucose 121 H Lactate Dehydrogenase 387 H Triglycerides 214 H Meds: Medications Albuterol Sulfate (Albuterol Sulfate 200 Puff Inhaler) 2 puff INH Q6HP PRN PRN Reason: Shortness Of Breath Albuterol/Ipratropium (Ipratropium/Albuterol 3 Ml Ampul.Neb) 3 ml NEB Q4HRT PRN PRN Reason: Wheezing Bisacodyl (Bisacodyl 10 Mg Supp.Rect) 10 mg MI ONCE ONE Stop: 10/27/21 16:15 Diphenhydramine HCl (Diphenhydramine 25 Mg Capsule) 25 mg PO QHS [facility] Last Admin: 10/26/21 20:03 Dose: 25 mg Documented by: Docusate Sodium (Docusate Sodium 100 Mg Capsule) 100 mg PO BID [facility] Last Admin: 10/27/21 08:14 Dose: 100 mg Documented by: Folic Acid (Folic Acid 1 Mg Tablet) 1 mg PO QHS [facility] Last Admin: 10/26/21 20:03 Dose: 1 mg Documented by: Furosemide (Furosemide 20 Mg Tablet) 20 mg PO DAILY [facility] Last Admin: 10/27/21 08:15 Dose: Not Given Documented by: Hydromorphone HCl (Hydromorphone 1 Mg/Ml Syringe) 1 mg IV Q4HP PRN; Protocol PRN Reason: Per Pain Protocol Hydromorphone HCl (Hydromorphone 2 Mg Tablet) 2 mg PO BIDP PRN; Protocol PRN Reason: pain Last Admin: 10/27/21 17:10 Dose: 2 mg Documented by: Hydroxyurea (Hydroxyurea 500 Mg Capsule) 1,000 mg PO [facility] Last Admin: 10/26/21 20:04 Dose: Not Given Documented by: Ibuprofen (Ibuprofen 600 Mg Tablet) 600 mg PO QIDP PRN; Protocol PRN Reason: PAIN/FEVER > 101 Last Admin: 10/27/21 04:21 Dose: 600 mg Documented by: Lidocaine (Lidocaine Patch) 1 patch TOPICAL [facility] Last Admin: 10/26/21 20:03 Dose: 1 patch Documented by: Lorazepam (Lorazepam 1 Mg Tablet) 1 mg PO DAILYP PRN PRN Reason: ANXIETY/SEDATION Magnesium Hydroxide (Magnesium Hydroxide 30 Ml Oral.Susp) 30 ml PO BIDP PRN PRN Reason: Constipation Methocarbamol (Methocarbamol 750 Mg Tablet) 750 mg PO Q8H [facility] Last Admin: 10/27/21 14:52 Dose: 750 mg Documented by: Ondansetron HCl (Ondansetron 4 Mg/2 Ml Vial) 4 mg IV Q6HP PRN PRN Reason: Nausea And Vomiting Paroxetine HCl (Paroxetine 20 Mg Tablet) 40 mg PO QHS [facility] Last Admin: 10/26/21 20:03 Dose: 40 mg Documented by: Ruxolitinib [Jakafi] (5 Mg Tablet) 2 dose PO BID [facility] Last Admin: 10/27/21 10:50 Dose: Not Given Documented by: Polyethylene Glycol (Polyethylene Glycol 3350 17 Gm Packet) 17 gm PO DAILYP PRN PRN Reason: Constipation Last Admin: 10/27/21 09:40 Dose: 17 gm Documented by: Potassium Chloride (Potassium Chloride 10 Meq Tablet) 10 meq PO QAMCC [facility] Last Admin: 10/27/21 08:14 Dose: 10 meq Documented by: Senna (Sennosides 1 Tablet) 2 tab PO [facility] Last Admin: 10/26/21 20:03 Dose: 2 tab Documented by: Sodium Chloride (0.9 % Sodium Chloride 10 Ml Syringe) 10 ml IV Q8 [facility] Last Admin: 10/27/21 14:53 Dose: Not Given Documented by: Tramadol HCl (Tramadol 50 Mg Tablet) 100 mg PO Q6HP PRN; Protocol PRN Reason: Pain Last Admin: 10/27/21 04:22 Dose: 100 mg Documented by: Zolpidem Tartrate (Zolpidem 5 Mg Tablet) 5 mg PO HSP PRN PRN Reason: Insomnia A/P Narrative A/P Narrative: 1. Thoracic and lumbar ([id number] post vertebroplasty and new L1) compression fracture associated with osteoporosis: Tramadol and ibuprofen Dilaudid IV PRN breakthrough pain Dilaudid PO PRN severe pain Methocarbamol Physical therapy Occupational therapy Will need to discuss definitive care with [facility] when their office is open 2. COPD, stable: Supplemental oxygen therapy titrate to achieve spo2>=88%, currently on room air DuoNEB NEB PRN wheezing or SOB 3. Constipation, drug induced: Bowel care 4. Polycythemia vera: Hydroxyurea Previously on Jakafi, stopped several months ago Elevated WBC, CBC from 10/27 still pending Plan: * Bowel care, suppository today, daily MiraLAX (instead of as needed) as needed milk of magnesia, senna * Pain control with tramadol and ibuprofen, methocarbamol, hydromorphone for uncontrolled pain * Continue lidocaine patch * Continue with PT, OT, patient wishes to work with PT (but was hesitant this morning due to recent bowel care being administered) * Follow-up CBC, monitor * Continue hydroxyurea * On Friday will attempt to coordinate with [facility] for vertebroplasty DVT ppx: SCDs Code status: Full Disposition: inpatient med surg; patient's goal is to achieve control well e nough to have outpatient procedure, she is not interested, nor has been interested in SNF Time Spent With Patient Time: Total time spent is greater than 50% in coordination of care (as documented) at patient's floor/unit and/or counseling patient: Total time spent with greater than 50% in coordination of care (as documented) at patient's floor/unit and/or counseling patient:: Greater than 35 minutes QUALITY VTE Deep Vein Thrombosis/Pulmonary Embolism Present on Admission: No
[2021-10-27] MEDS: diphenhydrAMINE 25 MG CAPSULE PO SCH (20:17)
[2021-10-27] MEDS: PARoxetine 20 MG TABLET PO SCH (20:17)
[2021-10-27] MEDS: FOLIC ACID 1 MG TABLET PO SCH (20:17)
[2021-10-27] MEDS: SENNOSIDES 1 TABLET PO SCH (20:17)
[2021-10-27] MEDS: LIDOCAINE PATCH TOPICAL SCH (20:18)
[2021-10-27] MEDS: HYDROXYUREA 500 MG CAPSULE PO SCH (20:24)
[2021-10-28] MEDS: IBUPROFEN 600 MG TABLET PO PRN ×2 (01:28→12:41)
[2021-10-28] MEDS: traMADol 50 MG TABLET PO PRN ×4 (01:28→20:20)
[2021-10-28] MEDS: HYDROmorphone 2 MG TABLET PO PRN (05:01)
[2021-10-28] MEDS: 0.9 % SODIUM CHLORIDE 10 ML SYRINGE IV SCH ×3 (05:02→20:23)
[2021-10-28] MEDS: METHOCARBAMOL 750 MG TABLET PO SCH ×3 (05:47→21:46)
[2021-10-28] MEDS: DOCUSATE SODIUM 100 MG CAPSULE PO SCH ×2 (08:11→20:20)
[2021-10-28] MEDS: POLYETHYLENE GLYCOL 3350 17 GM PACKET PO SCH (08:11)
[2021-10-28] MEDS: POTASSIUM CHLORIDE 10 MEQ TABLET PO SCH (08:13)
[2021-10-28] MEDS: FUROSEMIDE 20 MG TABLET PO SCH (09:43)
[2021-10-28] MEDS: RUXOLITINIB 5 MG PO SCH ×2 (09:43→20:21)
--- NOTE | 2021-10-28 10:57 | Internal Med Progress Note ---
SUBJECTIVE Subjective Patient information: Note initiated : 10/28/21 at 10:55 am Service Date, if different from initiated Date: [] Patient: Agatha Jay 76 y/o F admitted on 10/25/21 for Back Pain . Chief Complaint: Follow-up L1 compression fracture Interval history: Ms. Jay is a 76 year old F h/o COPD, polycythemia vera, osteoporosis with recent spinal compression fracture, p/w lower back pain for several weeks. She had a MRI of her back on 10/04/21 that showed a T12 compression fracture without any spinal cord impingement. She followed up with pain management and on 10/15 Dr. Ross performed a vertebroplasty. Pain initially improved then progressively worsened. A repeat imaging for a second lumbar x-ray on 10/22 revealed a new L1 compression fractures. The pain is described a 10 out of 10, localized, middle lower back pain, constant. No alleviating or exacerbating factors. She is unable to ambulate over the past 4 days. No bowel or bladder incontinence. No weakness or numbness of the lower extremities. She is also committing of constipations for the past week. She has tried tramadol and ibuprofen and lidocaine patch and they barely provide any symptom relief. Patient could not tolerate any oxycodone or hydrocodone because she would vomit minutes after taking these medications. She come to our emergency room because of uncontrolled continued lower back pain. 10/25: There was no major overnight events. c/o severe back pain. Denies any fever or chills. Pending SNF placement. 10/26: There was no major overnight events. c/o severe back pain. c/ constipation. Denies any fever or chills. Pending SNF placement. 10/27: Case reviewed. Apparently [facility] ([facility] clinic) was planning to schedule a vertebroplasty for the L1 fracture. Patient is not interested in SNF placement. The [facility] office was closed to yesterday for New 's, will be open on Friday. Pain is mostly controlled with minimal exertion on tramadol and ibuprofen. She feels she may not have given oral hydromorphone an adequate trial at home prior to presenting to the emergency department. She declined to work with physical therapy this morning as she was working with bowel care and was concerned about having to get to the commode quickly. Starting to have some bowel movements, would be interested in suppository. Discussed methylnaltrexone, but will attempt suppository first, as methylnaltrexone may interfere with peripheral analgesia as well. 1/2: Success with suppository, had another one today. Receiving daily MiraLAX now. Was able to ambulate to [facility] with physical therapy this morning. No other complaints. Constitutional Vitals: Vital Signs Temp Pulse Resp BP Pulse Ox 97.5 F 88 20 121/62 91 10/28/21 07:09 10/28/21 04:00 10/28/21 07:09 10/28/21 07:09 10/28/21 07:09 Period Temp Pulse Resp BP Sys/Monreal Pulse Ox Last 24 Hr 97.5 F-99.9 F 73-88 14-20 117-132/54-73 89-97 Intake and Output 10/27/21 10/28/21 10/28/21 21:59 05:59 13:59 Intake Total 480 300 Output Total 1 Balance 480 299 Weight 95 lb 3.2 oz Intake & Output: Intake & Output 10/27/21 10/28/21 10/28/21 21:59 05:59 13:59 Intake Total 480 300 Output Total 1 Balance 480 299 Weight 95 lb 3.2 oz Intake: Oral 480 300 Output: # of times incontinent of urine 1 Other: Meal Breakfast Percent of Meal Consumed 100% Feeding Ability Independent Urine Appearance Clear Urine Color Dark Yellow Stool Size Small Stool Color Brown Stool Consistency Dry and Hard # Voids 1 # Bowel Movements 1 GENERAL: Sitting up in bed, looks comfortable RESPIRATORY: Clear, unlabored CARDIOVASCULAR: Regular ABDOMEN: Firm, but improved from yesterday, active bowel sounds, nontender EXTREMITIES: No edema NEURO: Alert, oriented x3, ambulatory with walker, strength 5/5 at the ankles OBJ DATA Labs CBC & Chem 7: 10/24/21 15:55 10/27/21 10:36 Labs: Abnormal Lab Results 10/27/21 10:36 Carbon Dioxide 21 L Glucose 121 H Lactate Dehydrogenase 387 H Triglycerides 214 H Meds: Medications Albuterol Sulfate (Albuterol Sulfate 200 Puff Inhaler) 2 puff INH Q6HP PRN PRN Reason: Shortness Of Breath Albuterol/Ipratropium (Ipratropium/Albuterol 3 Ml Ampul.Neb) 3 ml NEB Q4HRT PRN PRN Reason: Wheezing Diphenhydramine HCl (Diphenhydramine 25 Mg Capsule) 25 mg PO QHS [facility] Last Admin: 10/27/21 20:17 Dose: 25 mg Documented by: Docusate Sodium (Docusate Sodium 100 Mg Capsule) 100 mg PO BID [facility] Last Admin: 10/28/21 08:11 Dose: 100 mg Documented by: Folic Acid (Folic Acid 1 Mg Tablet) 1 mg PO QHS [facility] Last Admin: 10/27/21 20:17 Dose: 1 mg Documented by: Furosemide (Furosemide 20 Mg Tablet) 20 mg PO DAILY [facility] Last Admin: 10/28/21 09:43 Dose: Not Given Documented by: Hydromorphone HCl (Hydromorphone 1 Mg/Ml Syringe) 1 mg IV Q4HP PRN; Protocol PRN Reason: Per Pain Protocol Hydromorphone HCl (Hydromorphone 2 Mg Tablet) 2 mg PO BIDP PRN; Protocol PRN Reason: pain Last Admin: 10/28/21 05:01 Dose: 2 mg Documented by: Hydroxyurea (Hydroxyurea 500 Mg Capsule) 1,000 mg PO [facility] Last Admin: 10/27/21 20:24 Dose: 500 mg Documented by: Ibuprofen (Ibuprofen 600 Mg Tablet) 600 mg PO QIDP PRN; Protocol PRN Reason: PAIN/FEVER > 101 Last Admin: 10/28/21 01:28 Dose: 600 mg Documented by: Lidocaine (Lidocaine Patch) 1 patch TOPICAL [facility] Last Admin: 10/27/21 20:18 Dose: 1 patch Documented by: Lorazepam (Lorazepam 1 Mg Tablet) 1 mg PO DAILYP PRN PRN Reason: ANXIETY/SEDATION Magnesium Hydroxide (Magnesium Hydroxide 30 Ml Oral.Susp) 30 ml PO BIDP PRN PRN Reason: Constipation Methocarbamol (Methocarbamol 750 Mg Tablet) 750 mg PO Q8H [facility] Last Admin: 10/28/21 05:47 Dose: 750 mg Documented by: Ondansetron HCl (Ondansetron 4 Mg/2 Ml Vial) 4 mg IV Q6HP PRN PRN Reason: Nausea And Vomiting Paroxetine HCl (Paroxetine 20 Mg Tablet) 40 mg PO QHS [facility] Last Admin: 10/27/21 20:17 Dose: 40 mg Documented by: Ruxolitinib [Jakafi] (5 Mg Tablet) 2 dose PO BID [facility] Last Admin: 10/28/21 09:43 Dose: Not Given Documented by: Polyethylene Glycol (Polyethylene Glycol 3350 17 Gm Packet) 17 gm PO DAILY [facility] Last Admin: 10/28/21 08:11 Dose: 17 gm Documented by: Potassium Chloride (Potassium Chloride 10 Meq Tablet) 10 meq PO QAMCC [facility] Last Admin: 10/28/21 08:13 Dose: 10 meq Documented by: Senna (Sennosides 1 Tablet) 2 tab PO HS [facility] Last Admin: 10/27/21 20:17 Dose: 2 tab Documented by: Sodium Chloride (0.9 % Sodium Chloride 10 Ml Syringe) 10 ml IV Q8 [facility] Last Admin: 10/28/21 05:02 Dose: Not Given Documented by: Tramadol HCl (Tramadol 50 Mg Tablet) 100 mg PO Q6HP PRN; Protocol PRN Reason: Pain Last Admin: 10/28/21 08:12 Dose: 100 mg Documented by: Zolpidem Tartrate (Zolpidem 5 Mg Tablet) 5 mg PO HSP PRN PRN Reason: Insomnia A/P Assessment and plan (1) Closed compression fracture of lumbar vertebra: Status: Acute (2) Compression fx, thoracic spine: Status: Acute (3) Constipation: Status: Chronic Qualifiers: Constipation type: drug induced constipation Qualified Code(s): K59.03 - Drug induced constipation (4) Chronic obstructive lung disease: Status: Chronic (5) Polycythemia vera: Status: Chronic (6) Osteoporosis: Status: Acute Narrative A/P Narrative: Thoracic and lumbar ([id number] post vertebroplasty and new L1) compression fracture associated with osteoporosis: -Tramadol and ibuprofen generally controlling pain -Dilaudid IV/PO PRN breakthrough pain, though she notes it is not as effective as tramadol -Methocarbamol -Physical therapy -Occupational therapy -Will need to discuss definitive care with [facility] when their office is open COPD, stable: -Supplemental oxygen therapy titrate to achieve spo2>=88%, currently on room air -DuoNEB NEB PRN wheezing or SOB Constipation, drug induced: -Bowel care Polycythemia vera: -Hydroxyurea -Previously on Jakafi, stopped several months ago -Elevated WBC, CBC from 10/27 with stable WBC (28.1), Hb 12.4, Plt 501K, results not crossing over to [employer] Plan: * Bowel care, continue with scheduled MiraLAX, Senokot as needed bisacodyl, milk of magnesia * Pain control with tramadol and ibuprofen, methocarbamol, hydromorphone for uncontrolled pain * Continue lidocaine patch * Continue with PT, OT, patient wishes to work with PT * Monitor CBC * Continue hydroxyurea * On Friday will attempt to coordinate with [facility] for vertebroplasty DVT ppx: SCDs Code status: Full Disposition: inpatient med surg; patient's goal is to achieve control well enough to have outpatient procedure Time Spent With Patient Time: Total time spent is greater than 50% in coordination of care (as documented) at patient's floor/unit and/or counseling patient: QUALITY VTE Deep Vein Thrombosis/Pulmonary Embolism Present on Admission: No
--- NOTE | 2021-10-28 13:33 | Internal Med Progress Note ---
SUBJECTIVE Subjective Patient information: Note initiated : 10/28/21 at 1:31 pm Service Date, if different from initiated Date: [] Patient: Agatha Jay 76 y/o F admitted on 10/25/21 for Back Pain . Chief Complaint: [] Interval history: Ms. Jay is a 76 year old F h/o COPD, polycythemia vera, osteoporosis with recent spinal compression fracture, p/w lower back pain for several weeks. She had a MRI of her back on 10/04/21 that showed a T12 compression fracture without any spinal cord impingement. She followed up with pain management and on 10/15 Dr. Ross performed a vertebroplasty. Pain initially improved then progressively worsened. A repeat imaging for a second lumbar x-ray on 10/22 revealed a new L1 compression fractures. The pain is described a 10 out of 10, localized, middle lower back pain, constant. No alleviating or exacerbating factors. She is unable to ambulate over the past 4 days. No bowel or bladder incontinence. No weakness or numbness of the lower extremities. She is also committing of constipations for the past week. She has tried tramadol and ibuprofen and lidocaine patch and they barely provide any symptom relief. Patient could not tolerate any oxycodone or hydrocodone because she would vomit minutes after taking these medications. She come to our emergency room because of uncontrolled continued lower back pain. 10/25: There was no major overnight events. c/o severe back pain. Denies any fever or chills. Pending SNF placement. 10/26: There was no major overnight events. c/o severe back pain. c/ constipation. Denies any fever or chills. Pending SNF placement. 10/27: Case reviewed. Apparently [facility] (pain clinic) was planning to schedule a vertebroplasty for the L1 fracture. Patient is not interested in SNF placement. The [facility] office was closed to yesterday for New 's, will be open on Friday. Pain is mostly controlled with minimal exertion on tramadol and ibuprofen. She feels she may not have given oral hydromorphone an adequate trial at home prior to presenting to the emergency department. She declined to work with physical therapy this morning as she was working with bowel care and was concerned about having to get to the commode quickly. Starting to have some bowel movements, would be interested in suppository. Discussed methylnaltrexone, but will attempt suppository first, as methylnaltrexone may interfere with peripheral analgesia as well. 10/28: Success with suppository, had another one today. Receiving daily MiraLAX now. Was able to ambulate to [facility] with physical therapy this morning. No other complaints. Constitutional Vitals: Vital Signs Temp Pulse Resp BP Pulse Ox 97.7 F 88 20 118/60 90 10/28/21 12:00 10/28/21 04:00 10/28/21 12:00 10/28/21 12:00 10/28/21 12:00 Period Temp Pulse Resp BP Sys/Monreal Pulse Ox Last 24 Hr 97.5 F-99.9 F 73-88 14-20 117-132/54-62 89-97 Intake and Output 10/27/21 10/28/21 10/28/21 21:59 05:59 13:59 Intake Total 480 300 Output Total 1 Balance 480 299 Weight 43.182 kg Intake & Output: Intake & Output 10/27/21 10/28/21 10/28/21 21:59 05:59 13:59 Intake Total 480 300 Output Total 1 Balance 480 299 Weight 43.182 kg Intake: Oral 480 300 Output: # of times incontinent of urine 1 Other: Meal Breakfast Percent of Meal Consumed 100% Feeding Ability Independent Urine Appearance Clear Urine Color Dark Yellow Stool Size Small Stool Color Brown Stool Consistency Dry and Hard # Voids 1 # Bowel Movements 1 Exam: General: Alert, Awake, No acute Distress Eyes/N/T: EOMI, Head/Neck: neck supple, CV: RRR, No murmurs, Pulm: Clear b/l, no wheezing/rhonchi/rales Abd: soft, nontender, +BS x4 Ext: no clubbing/cyanosis/edema Neuro: Alert, no focal deficits, moves all extremities, Skin: warm/dry OBJ DATA Labs CBC & Chem 7: 10/24/21 15:55 10/27/21 10:36 Labs: Abnormal Lab Results 10/27/21 10:36 Carbon Dioxide 21 L Glucose 121 H Lactate Dehydrogenase 387 H Triglycerides 214 H Meds: Medications Albuterol Sulfate (Albuterol Sulfate 200 Puff Inhaler) 2 puff INH Q6HP PRN PRN Reason: Shortness Of Breath Albuterol/Ipratropium (Ipratropium/Albuterol 3 Ml Ampul.Neb) 3 ml NEB Q4HRT PRN PRN Reason: Wheezing Diphenhydramine HCl (Diphenhydramine 25 Mg Capsule) 25 mg PO QHS [facility] Last Admin: 10/27/21 20:17 Dose: 25 mg Documented by: Docusate Sodium (Docusate Sodium 100 Mg Capsule) 100 mg PO BID [facility] Last Admin: 10/28/21 08:11 Dose: 100 mg Documented by: Folic Acid (Folic Acid 1 Mg Tablet) 1 mg PO QHS [facility] Last Admin: 10/27/21 20:17 Dose: 1 mg Documented by: Furosemide (Furosemide 20 Mg Tablet) 20 mg PO DAILY [facility] Last Admin: 10/28/21 09:43 Dose: Not Given Documented by: Hydromorphone HCl (Hydromorphone 1 Mg/Ml Syringe) 1 mg IV Q4HP PRN; Protocol PRN Reason: Per Pain Protocol Hydromorphone HCl (Hydromorphone 2 Mg Tablet) 2 mg PO BIDP PRN; Protocol PRN Reason: pain Last Admin: 10/28/21 05:01 Dose: 2 mg Documented by: Hydroxyurea (Hydroxyurea 500 Mg Capsule) 1,000 mg PO [facility] Last Admin: 10/27/21 20:24 Dose: 500 mg Documented by: Ibuprofen (Ibuprofen 600 Mg Tablet) 600 mg PO QIDP PRN; Protocol PRN Reason: PAIN/FEVER > 101 Last Admin: 10/28/21 12:41 Dose: 600 mg Documented by: Lidocaine (Lidocaine Patch) 1 patch TOPICAL [facility] Last Admin: 10/27/21 20:18 Dose: 1 patch Documented by: Lorazepam (Lorazepam 1 Mg Tablet) 1 mg PO DAILYP PRN PRN Reason: ANXIETY/SEDATION Magnesium Hydroxide (Magnesium Hydroxide 30 Ml Oral.Susp) 30 ml PO BIDP PRN PRN Reason: Constipation Methocarbamol (Methocarbamol 750 Mg Tablet) 750 mg PO Q8H [facility] Last Admin: 10/28/21 13:18 Dose: 750 mg Documented by: Ondansetron HCl (Ondansetron 4 Mg/2 Ml Vial) 4 mg IV Q6HP PRN PRN Reason: Nausea And Vomiting Paroxetine HCl ([facility] 20 Mg Tablet) [facility] Last Admin: 10/27/21 20:17 Dose: 40 mg Documented by: Ruxolitinib [Jakafi] (5 Mg Tablet) 2 dose PO BID [facility] Last Admin: 10/28/21 09:43 Dose: Not Given Documented by: Polyethylene Glycol (Polyethylene Glycol 3350 17 Gm Packet) 17 gm PO DAILY [facility] Last Admin: 10/28/21 08:11 Dose: 17 gm Documented by: Potassium Chloride (Potassium Chloride 10 Meq Tablet) 10 meq PO QAMCC [facility] Last Admin: 10/28/21 08:13 Dose: 10 meq Documented by: Senna (Sennosides 1 Tablet) 2 tab PO HS [facility] Last Admin: 10/27/21 20:17 Dose: 2 tab Documented by: Sodium Chloride (0.9 % Sodium Chloride 10 Ml Syringe) 10 ml IV Q8 [facility] Last Admin: 10/28/21 13:19 Dose: Not Given Documented by: Tramadol HCl (Tramadol 50 Mg Tablet) 100 mg PO Q6HP PRN; Protocol PRN Reason: Pain Last Admin: 10/28/21 13:17 Dose: 100 mg Documented by: Zolpidem Tartrate (Zolpidem 5 Mg Tablet) 5 mg PO HSP PRN PRN Reason: Insomnia A/P Narrative A/P Narrative: *Thoracic & lumbar ([id number] post vertebroplasty and new L1) compression Fx w/osteoporosis: *COPD, stable: *Constipation, drug induced: Bowel care *Polycythemia vera: Hydroxyurea, -Previously on Jakafi, stopped several months ago -Elevated WBC, CBC from 10/27 with stable WBC (28.1), Hb 12.4, Plt 501K, results not crossing over to [employer] Plan: -Tramadol and ibuprofen generally controlling pain, lidoderm -Dilaudid IV/PO PRN breakthrough pain, though she notes it is not as effective as tramadol -Methocarbamol -Physical therapy / Occupational therapy -Will need to discuss definitive care with [facility] when their office is open -Bowel care, continue with scheduled MiraLAX, Senokot as needed bisacodyl, milk of magnesia -Continue hydroxyurea -CM coordinate with [facility] for vertebroplasty -ppx: SCDs Code status: Grinder Operator Automatic Spent With Patient Time: Total time spent is greater than 50% in coordination of care (as documented) at patient's floor/unit and/or counseling patient: QUALITY VTE Deep Vein Thrombosis/Pulmonary Embolism Present on Admission: No
[2021-10-28] MEDS: LIDOCAINE PATCH TOPICAL SCH (20:19)
[2021-10-28] MEDS: SENNOSIDES 1 TABLET PO SCH (20:20)
[2021-10-28] MEDS: PARoxetine 20 MG TABLET PO SCH (20:20)
[2021-10-28] MEDS: HYDROXYUREA 500 MG CAPSULE PO SCH (20:21)
[2021-10-28] MEDS: FOLIC ACID 1 MG TABLET PO SCH (20:21)
[2021-10-28] MEDS: diphenhydrAMINE 25 MG CAPSULE PO SCH (20:21)
[2021-10-29] MEDS: traMADol 50 MG TABLET PO PRN ×2 (04:56→10:45)
[2021-10-29] MEDS: METHOCARBAMOL 750 MG TABLET PO SCH ×2 (05:43→14:20)
[2021-10-29] MEDS: 0.9 % SODIUM CHLORIDE 10 ML SYRINGE IV SCH (05:46)
[2021-10-29] MEDS: IBUPROFEN 600 MG TABLET PO PRN ×2 (05:49→11:38)
[2021-10-29 06:50] LABS: Basophils # (Auto) 0.75 K/mcL (0.00-0.30); Basophils % (Auto) 2.5 % (0.0-2.0); Eosinophils # (Auto) 0.05 K/mcL (0.00-0.70); Eosinophils % (Auto) 0.2 % (0.0-7.0); Hematocrit 43.9 % (34.1-44.9); Lymphocytes # (Auto) 5.72 K/mcL (1.50-4.80); Lymphocytes % (Auto) 19.4 % (15.5-49.0); Mean Cell Volume 64.6 fL (80.0-100.0); Mean Corpuscular HGB Conc 27.3 g/dL (31.0-36.0); Monocytes # (Auto) 4.68 K/mcL (0.10-0.90); Monocytes % (Auto) 15.8 % (1.0-12.0); Neutrophils % (Auto) 62.1 % (38.0-78.0); Platelet Count 449 K/mcL (140-440); WBC 29.5 K/mcL (4.5-11.0)
[2021-10-29 07:16] LABS: Blood Urea Nitrogen 20 mg/dL (8-23); Calcium 8.7 mg/dL (8.6-10.4); Carbon Dioxide 25 mmol/L (22-30); Chloride 109 mmol/L (96-108); Glomerular Filtration Rate 84; Glucose 74 mg/dL (70-105)
[2021-10-29] MEDS: RUXOLITINIB 5 MG PO SCH (07:47)
--- NOTE | 2021-10-29 08:02 | Internal Med Progress Note ---
SUBJECTIVE Subjective Patient information: Note initiated : 10/29/21 at 8:01 am Service Date, if different from initiated Date: [] Patient: Agatha Jay 76 y/o F admitted on 10/25/21 for Back Pain . Chief Complaint: [] Interval history: Ms. Jay is a 76 year old F h/o COPD, polycythemia vera, osteoporosis with recent spinal compression fracture, p/w lower back pain for several weeks. She had a MRI of her back on 10/04/21 that showed a T12 compression fracture without any spinal cord impingement. She followed up with pain management and on 10/15 Dr. Ross performed a vertebroplasty. Pain initially improved then progressively worsened. A repeat imaging for a second lumbar x-ray on 10/22 revealed a new L1 compression fractures. The pain is described a 10 out of 10, localized, middle lower back pain, constant. No alleviating or exacerbating factors. She is unable to ambulate over the past 4 days. No bowel or bladder incontinence. No weakness or numbness of the lower extremities. She is also committing of constipations for the past week. She has tried tramadol and ibuprofen and lidocaine patch and they barely provide any symptom relief. Patient could not tolerate any oxycodone or hydrocodone because she would vomit minutes after taking these medications. She come to our emergency room because of uncontrolled continued lower back pain. 10/25: There was no major overnight events. c/o severe back pain. Denies any fever or chills. Pending SNF placement. 10/26: There was no major overnight events. c/o severe back pain. c/ constipation. Denies any fever or chills. Pending SNF placement. 10/27: Case reviewed. Apparently [facility] (pain clinic) was planning to schedule a vertebroplasty for the L1 fracture. Patient is not interested in SNF placement. The [facility] office was closed to yesterday for New 's, will be open on Friday. Pain is mostly controlled with minimal exertion on tramadol and ibuprofen. She feels she may not have given oral hydromorphone an adequate trial at home prior to presenting to the emergency department. She declined to work with physical therapy this morning as she was working with bowel care and was concerned about having to get to the commode quickly. Starting to have some bowel movements, would be interested in suppository. Discussed methylnaltrexone, but will attempt suppository first, as methylnaltrexone may interfere with peripheral analgesia as well. 10/28: Success with suppository, had another one today. Receiving daily MiraLAX now. Was able to ambulate to [facility] with physical therapy this morning. No other complaints. 10/29 No overnight event or new complaints. Awaiting placement and vertebroplasty plans. Review of Systems: denies headache/fever/chills/nausea/vomiting/chest or abdominal pain/cough/dyspnea/diarrhea. Otherwise see above. Constitutional Vitals: Vital Signs Temp Pulse Resp BP Pulse Ox 98.5 F 74 20 130/64 89 L 10/29/21 07:26 10/29/21 07:26 10/29/21 07:26 10/29/21 07:26 10/29/21 07:26 Period Temp Pulse Resp BP Sys/Monreal Pulse Ox Last 24 Hr 97.0 F-98.8 F 73-79 16-20 109-130/43-65 87-92 Intake and Output 10/28/21 10/29/21 10/29/21 21:59 05:59 13:59 Intake Total 640 Output Total 1 Balance 639 Weight 43.182 kg Intake & Output: Intake & Output 10/28/21 10/29/21 10/29/21 21:59 05:59 13:59 Intake Total 640 Output Total 1 Balance 639 Weight 43.182 kg Intake: Oral 640 Output: # of times incontinent of urine 1 Other: # Voids 1 Exam: General: Alert, Awake, No acute Distress Eyes/N/T: EOMI, Head/Neck: neck supple, CV: RRR, No murmurs, Pulm: Clear b/l, no wheezing/rhonchi/rales Abd: soft, nontender, +BS x4 Ext: no clubbing/cyanosis/edema Neuro: Alert, no focal deficits, moves all extremities, Skin: warm/dry OBJ DATA Labs CBC & Chem 7: 10/29/21 05:14 10/29/21 05:14 Labs: Abnormal Lab Results 10/29/21 10/29/21 10/27/21 05:14 05:14 10:36 WBC 29.5 H RBC 6.80 H MCV 64.6 L MCH 17.6 L MCHC 27.3 L RDW 35.0 H Plt Count 449 H Bell % (Auto) 15.8 H Baso % (Auto) 2.5 H Lymph # (Auto) 5.72 H Bell # (Auto) 4.68 H Baso # (Auto) 0.75 H Absolute Neutrophils 18.34 H Chloride 109 H Carbon Dioxide 21 L Glucose 121 H Lactate Dehydrogenase 387 H Triglycerides 214 H Meds: Medications Albuterol Sulfate (Albuterol Sulfate 200 Puff Inhaler) 2 puff INH Q6HP PRN PRN Reason: Shortness Of Breath Albuterol/Ipratropium (Ipratropium/Albuterol 3 Ml Ampul.Neb) 3 ml NEB Q4HRT PRN PRN Reason: Wheezing Diphenhydramine HCl (Dip[facility] 25 Mg Capsule) [facility] Last Admin: 10/28/21 20:21 Dose: 25 mg Documented by: Docusate Sodium (Docusate Sodium 100 Mg Capsule) 100 mg PO BID [facility] Last Admin: 10/28/21 20:20 Dose: 100 mg Documented by: Folic Acid (Folic Acid 1 Mg Tablet) 1 mg PO QHS [facility] Last Admin: 10/28/21 20:21 Dose: 1 mg Documented by: Furosemide (Furosemide 20 Mg Tablet) 20 mg PO DAILY [facility] Last Admin: 10/28/21 09:43 Dose: Not Given Documented by: Hydromorphone HCl (Hydromorphone 1 Mg/Ml Syringe) 1 mg IV Q4HP PRN; Protocol PRN Reason: Per Pain Protocol Hydromorphone HCl (Hydromorphone 2 Mg Tablet) 2 mg PO BIDP PRN; Protocol PRN Reason: pain Last Admin: 10/28/21 05:01 Dose: 2 mg Documented by: Hydroxyurea (Hydroxyurea 500 Mg Capsule) 1,000 mg PO [facility] Last Admin: 10/28/21 20:21 Dose: Not Given Documented by: Ibuprofen (Ibuprofen 600 Mg Tablet) 600 mg PO QIDP PRN; Protocol PRN Reason: PAIN/FEVER > 101 Last Admin: 10/29/21 05:49 Dose: 600 mg Documented by: Lidocaine (Lidocaine Patch) 1 patch TOPICAL [facility] Last Admin: 10/28/21 20:19 Dose: 1 patch Documented by: Lorazepam (Lorazepam 1 Mg Tablet) 1 mg PO DAILYP PRN PRN Reason: ANXIETY/SEDATION Magnesium Hydroxide (Magnesium Hydroxide 30 Ml Oral.Susp) 30 ml PO BIDP PRN PRN Reason: Constipation Methocarbamol (Methocarbamol 750 Mg Tablet) 750 mg PO Q8H [facility] Last Admin: 10/29/21 05:43 Dose: 750 mg Documented by: Ondansetron HCl (Ondansetron 4 Mg/2 Ml Vial) 4 mg IV Q6HP PRN PRN Reason: Nausea And Vomiting Paroxetine HCl (Paroxetine 20 Mg Tablet) 40 mg PO QHS [facility] Last Admin: 10/28/21 20:20 Dose: 40 mg Documented by: Ruxolitinib [Jakafi] (5 Mg Tablet) 2 dose PO BID [facility] Last Admin: 10/29/21 07:47 Dose: Not Given Documented by: Polyethylene Glycol (Polyethylene Glycol 3350 17 Gm Packet) 17 gm PO DAILY [facility] Last Admin: 10/28/21 08:11 Dose: 17 gm Documented by: Potassium Chloride (Potassium Chloride 10 Meq Tablet) [facility] Last Admin: 10/28/21 08:13 Dose: 10 meq Documented by: Senna (Sennosides 1 Tablet) 2 tab PO [facility] Last Admin: 10/28/21 20:20 Dose: 2 tab Documented by: Sodium Chloride (0.9 % Sodium Chloride 10 Ml Syringe) 10 ml IV Q8 [facility] Last Admin: 10/29/21 05:46 Dose: Not Given Documented by: Tramadol HCl (Tramadol 50 Mg Tablet) 100 mg PO Q6HP PRN; Protocol PRN Reason: Pain Last Admin: 10/29/21 04:56 Dose: 100 mg Documented by: Zolpidem Tartrate (Zolpidem 5 Mg Tablet) 5 mg PO HSP PRN PRN Reason: Insomnia A/P Narrative A/P Narrative: *Thoracic & lumbar ([id number] post vertebroplasty and new L1) compression Fx w/osteoporosis: *COPD, stable: *Constipation, drug induced: Bowel care *Polycythemia vera: Hydroxyurea, Previously on Jakafi, stopped several months ago -Elevated WBC, CBC from 10/27 with stable WBC (28.1), Hb 12.4, Plt 501K, results not crossing over to [employer] Plan: -Tramadol and ibuprofen generally controlling pain, lidoderm -Dilaudid IV/PO PRN breakthrough pain, though she notes it is not as effective as tramadol -Methocarbamol -Physical therapy / Occupational therapy -Bowel care, continue with scheduled MiraLAX, Senokot as needed bisacodyl, milk of magnesia -Continue hydroxyurea -CM coordinate with [facility] for vertebroplasty -ppx: SCDs Code status: Racebook Writer Spent With Patient Time: Total time spent is greater than 50% in coordination of care (as documented) at patient's floor/unit and/or counseling patient: QUALITY VTE Deep Vein Thrombosis/Pulmonary Embolism Present on Admission: No
[2021-10-29] MEDS: POLYETHYLENE GLYCOL 3350 17 GM PACKET PO SCH (08:31)
[2021-10-29] MEDS: FUROSEMIDE 20 MG TABLET PO SCH (08:31)
[2021-10-29] MEDS: DOCUSATE SODIUM 100 MG CAPSULE PO SCH (08:31)
[2021-10-29] MEDS: POTASSIUM CHLORIDE 10 MEQ TABLET PO SCH (08:31)
--- NOTE | 2021-10-29 10:32 | Discharge Summary ---
Discharge Provider Provider Patient information: Note initiated : 10/29/21 at 10:30 am Service Date, if different from initiated Date: [] Patient: Agatha Jay 76 y/o F admitted on 10/25/21 for Back Pain . Chief Complaint: [] Date of admission: 10/25/21 14:58 Discharge date: 10/29/21 Primary care physician: Julio César Roberts Consults: 10/24/21 Consult to Physician [CONS] Stat Comment: Consulting Provider: Braxton Morgan Reason For Exam: Physician to Consult Discharge Meds Discharge Medications Home Medications diphenhydramine HCl 25 mg capsule (Z-Sleep) 25 mg PO QHS 01/04/16 [History Confirmed 10/24/21 Last Taken 10/23/21 21:00] albuterol sulfate 90 mcg/actuation aerosol inhaler (Ventolin HFA) 2 puff INHALATION Q6H PRN 05/17/20 [History Confirmed 10/24/21 Last Taken 10/25/20] folic acid 1 mg tablet 1 mg PO QHS 05/17/20 [History Confirmed 10/24/21 Last Taken 10/23/21 21:00] paroxetine HCl 20 mg tablet 40 mg PO QHS 09/20/20 [History Confirmed 10/24/21 Last Taken 10/23/21] ibuprofen 200 mg tablet 400 - 800 mg PO Q6H PRN 09/27/20 [History Confirmed 10/24/21 Last Taken 10/24/21] hydroxyurea 500 mg capsule See Rx Instructions .ROUTE .COMPLEX 12/16/20 [History Confirmed 10/26/21 Last Taken 10/23/21] methocarbamol 750 mg tablet 750 mg PO Q8H #15 tab 08/31/21 [Rx Confirmed 10/24/21 Last Taken 10/24/21] furosemide 20 mg tablet 20 mg PO QAM PRN 10/03/21 [History Confirmed 10/24/21 Last Taken Unknown] potassium chloride 10 mEq tablet,extended release 10 meq PO HS tab 10/03/21 [History Confirmed 10/24/21 Last Taken Unknown] tramadol 50 mg tablet 100 mg PO Q6HRT PRN tab 10/03/21 [History Confirmed 10/24/21 Last Taken 10/24/21] lorazepam 1 mg tablet (Ativan) 1 mg PO QDAY PRN #10 tab 10/15/21 [Rx Confirmed 10/24/21 Last Taken 10/19/21] hydromorphone 2 mg tablet (Dilaudid) 2 mg PO BID PRN #15 tab 10/23/21 [Rx Confirmed 10/25/21 Last Taken Unknown] lidocaine 5 % topical patch 1 patch TOPICAL HS #7 ea 10/29/21 [Rx Last Taken Unknown] COURSE Hospital Course Hospital course: Interval history: Ms. Jay is a 76 year old F h/o COPD, polycythemia vera, osteoporosis with recent spinal compression fracture, p/w lower back pain for several weeks. She had a MRI of her back on 10/04/21 that showed a T12 compression fracture without any spinal cord impingement. She followed up with pain management and on 10/15 Dr. Ross performed a vertebroplasty. Pain initially improved then progressively worsened. A repeat imaging for a second lumbar x-ray on 10/22 revealed a new L1 compression fractures. The pain is described a 10 out of 10, localized, middle lower back pain, constant. No alleviating or exacerbating factors. She is unable to ambulate over the past 4 days. No bowel or bladder incontinence. No weakness or numbness of the lower extremities. She is also committing of constipations for the past week. She has tried tramadol and ibuprofen and lidocaine patch and they barely provide any symptom relief. Patient could not tolerate any oxycodone or hydrocodone because she would vomit minutes after taking these medications. She come to our emergency room because of uncontrolled continued lower back pain. 10/25: There was no major overnight events. c/o severe back pain. Denies any fever or chills. Pending SNF placement. 10/26: There was no major overnight events. c/o severe back pain. c/ constipation. Denies any fever or chills. Pending SNF placement. 10/27: Case reviewed. Apparently [facility] (pain clinic) was planning to schedule a vertebroplasty for the L1 fracture. Patient is not interested in SNF placement. The [facility] office was closed to yesterday for New Year's, will be open on Friday. Pain is mostly controlled with minimal exertion on tramadol and ibuprofen. She feels she may not have given oral hydromorphone an adequate trial at home prior to presenting to the emergency department. She declined to work with physical therapy this morning as she was working with bowel care and was concerned about having to get to the commode quickly. Starting to have some bowel movements, would be interested in suppository. Discussed methylnaltrexone, but will attempt suppository first, as methylnaltrexone may interfere with peripheral analgesia as well. 10/28: Success with suppository, had another one today. Receiving daily MiraLAX now. Was able to ambulate to [facility] [place] with physical therapy this morning. No other complaints. 10/29 No overnight event or new complaints. Awaiting placement and vertebroplasty plans. A/P Narrative: *Thoracic & lumbar (K72-[id number] post vertebroplasty and new L1) compression Fx w/osteoporosis: *COPD, stable: *Constipation, drug induced: Bowel care *Polycythemia vera: Hydroxyurea, Previously on Jakafi, stopped several months ago -Elevated WBC, CBC from 10/27 with stable WBC Plan: -Tramadol and ibuprofen generally controlling pain, lidoderm -Methocarbamol -Physical therapy / Occupational therapy -CM coordinate with [facility] for vertebroplasty Discharge diagnosis: Spinal compression fractures Secondary discharge diagnosis: COPD constipation polycythemia vera Time Spent with Patient Time attestation: Total time spent providing and/or coordinating discharge services: Time spent: Greater than 30 minutes EXAM Constitutional Vitals: Temp Pulse Resp BP Pulse Ox 98.5 F 74 20 130/64 89 L 10/29/21 07:26 10/29/21 07:26 10/29/21 07:26 10/29/21 07:26 10/29/21 07:26 Discharge Data Data Completed and Pending Labs on day of discharge: Labs from last 24 hours 10/29/21 10/29/21 05:14 05:14 WBC 29.5 H RBC 6.80 H Hgb 12.0 Hct 43.9 MCV 64.6 L MCH 17.6 L MCHC 27.3 L RDW 35.0 H Plt Count 449 H MPV Neut % (Auto) 62.1 Lymph % (Auto) 19.4 [place] % (Auto) 15.8 H Eos % (Auto) 0.2 Baso % (Auto) 2.5 H Lymph # (Auto) 5.72 H [place] # (Auto) 4.68 H Eos # (Auto) 0.05 Baso # (Auto) 0.75 H Absolute Neutrophils 18.34 H Sodium 142 Potassium 3.9 Chloride 109 H Carbon Dioxide 25 Anion Gap 8.0 BUN 20 Creatinine 0.7 GFR Calculation 84 Glucose 74 Calcium 8.7 Discharge Plan Patient/Caregiver Discharge Instructions Activity: increase activity as tolerated Diet: Regular Diet Prescriptions: New lidocaine 5 % Adhesive Patch,Medicated 1 patch topical HS Qty: 7 0RF Continued lorazepam [Ativan] 1 mg tablet 1 mg PO QDAY PRN (Reason: spasms) Qty: 10 0RF Rx Instructions: Take on tab PO prn to help with spasms. hydromorphone [Dilaudid] 2 mg tablet 2 mg PO BID PRN (Reason: pain) Qty: 15 0RF tramadol 50 mg tablet 100 mg PO Q6HRT PRN (Reason: Pain) 0RF furosemide 20 mg tablet 20 mg PO QAM PRN (Reason: SWELLING) 0RF potassium chloride 10 mEq tablet extended release 10 meq PO HS 0RF diphenhydramine HCl [Z-Sleep] 25 MG capsule 25 mg PO QHS 0RF folic acid 1 mg Tablet 1 mg PO QHS 0RF albuterol sulfate [Ventolin HFA] 90 mcg/actuation Hfa Aerosol Inhaler 2 puff INHALATION Q6H PRN (Reason: Shortness Of Breath) 0RF paroxetine HCl 20 mg Tablet 40 mg PO QHS 0RF ibuprofen 200 mg Tablet 400 - 800 mg PO Q6H PRN (Reason: Pain) 0RF Label Comments: stopped taking as she thinks it caused an ulcer hydroxyurea 500 mg Capsule See Rx Instructions .ROUTE .COMPLEX 0RF Rx Instructions: 500 mg orally QOD methocarbamol 750 mg tablet 750 mg PO Q8H Qty: 15 0RF Discontinued cephalexin 500 MG capsule 500 mg PO QHS 0RF Follow Up Plan Follow up with: Julio César Roberts DO [Primary Care Provider] - Fito Barrett MD [Physician] - Patient Disposition: Home Health Service Prognosis: Fair Overall status at discharge: patient is progressing back to baseline Discharge Orders: Discharge Order (Routine); Ordered 10/29/21 Ordered By: Nael Yeboah [facility] VTE Deep Vein Thrombosis/Pulmonary Embolism Present on Admission: No
[2021-10-29 21:15] LABS: Appearance,Urine CLEAR (Clear); Bilirubin,Urine Negative (Negative); Color,Urine YELLOW; Culture Indicated,Urine No; Glucose,Urine (UA) Negative (Negative); Ketones,Urine Negative (Negative); Leukocyte Esterase,Urine Negative /uL (Negative); Nitrate,Urine Negative (Negative); Protein,Urine Negative (Negative); Specific Gravity,Urine 1.013 (1.000-1.035); Urine Blood Negative (Negative); Urobilinogen,Urine Negative
== END 2021-10-29 14:35 | disposition home or self-care (01) | DRG 544 ==
LOC: ED 06:13 → MEDSUR 06:13
PROVIDERS: ADMIT Internal Medicine; ATTEND Internal Medicine